=== PATIENT | female | born 1930 | race Caucasian/White ===

== ENCOUNTER 2016-11-21 17:27 | Observation (INO) ==
[~2016-11-21 17:27] MED LIST: ENOXAPARIN 40 MG/0.4 ML SYRINGE SUBCUT SCH
[2016-11-21] MEDS ORDERED: ONDANSETRON 4 MG/2 ML VIAL IV STA (19:26)
[2016-11-21] MEDS ORDERED: SODIUM CHLORIDE 0.9% 500 ML IV STA (19:26)
--- NOTE | 2016-11-21 19:59 | XRay Report ---
Portable chest Exam date: 11/21/2016 7:27 PM Indication: Shortness of breath, cough Comparison: July 27, 2015 Findings: Cardiomediastinal contours are stable with again plaquing along the arch. Lungs are clear bilaterally. No acute osseous abnormalities. Visualized upper abdomen demonstrates no acute pathology. Impression: No acute cardiopulmonary findings PROCEDURE INTERPRETED AT [facility] DEPARTMENT OF RADIOLOGY Final Report Signed by: Pérez Mora
--- NOTE | 2016-11-21 20:07 | CT Report ---
Exam: CT head without intravenous contrast Clinical History: 86 years Female fall with headache Technique: Axial computed tomography images of the head/brain without intravenous contrast Comparison: July 02, 2013 Findings: Brain: Stable microangiopathic small vessel ischemic changes. Mora-white matter distinction maintained. No mass effect. No intra or extra-axial hemorrhage. Ventricles: Unremarkable. Symmetric prominence of ventricular system, felt to represent changes associated with volume loss. Bones/joints: Calvarium is intact Soft tissues: Unremarkable Sinuses: No active paranasal sinus process Mastoid air cells: Unremarkable visualized. Impression: 1. No acute intracranial abnormality PROCEDURE INTERPRETED AT [facility] DEPARTMENT OF RADIOLOGY Final Report Signed by: Pérez Mora
--- NOTE | 2016-11-21 20:09 | XRay Report ---
Exam: XR pelvis AP 1 or 2 Views Exam date: 11/21/2016 7:27 PM Indication: Pelvic Pain, Comparison: August 10, 2015 Findings: Slight proliferative changes across the acetabulum with mild symmetric joint space narrowing. Healed fracture deformities of the right hemipelvis with bilateral sacroiliitis and osteitis pubis. Bowel gas pattern is normal. No radiographic soft tissue abnormalities. Impression: Healed fracture deformities the right hemipelvis with degenerative changes involving bilateral hips, sacroiliac joints and symphysis pubis PROCEDURE INTERPRETED AT [facility] DEPARTMENT OF RADIOLOGY Final Report Signed by: Pérez Mora
--- NOTE | 2016-11-21 20:10 | Emergency Department Note ---
IShagufta Gwan, am scribing for, and in the presence of, Yeyo Valdivia MD 18 :57. IShea Charles R, MD, personally performed the services described in this documentation, ascribed by Gerri Eagle in my presence, and it is both accurate and complete . Arrival - Arrival Chief Complaint: Fall Stated Complaint: blood sugar,fell this morning ED Nursing Triage Note: reports tired and feeling bad and just "wore out" for the past two weeks. family member reports that pt fell this morning and that she dont think she is taking her meds correctly. pt reports that she has some left shoulder pain. Mode of Arrival: Wheelchair Limitations: No Limitations Source: Patient, Old Records Reviewed, RN Notes Reviewed - History of Present Illness HPI Narrative: Patient is a 86 y/o female, with a hx of Vertigo and NIDDM, who present to the ED with a c/o fatigue, dizziness, confusion and unsteady gait with an onset 2 weeks ago. Patient is accompanied by family member who reports that pt fell this morning causing injury to her left shoulder. Family denies that pt has been compliant with prescribed medications. Patient confirmed that as she was sitting on her bed when she lost her balance and fell between her bed and her bed side refrigerator. EMS was alerted but pt refused to go to ED for further evaluation at that time. Family continued to note that when they arrived, patient appeared confused and he BS was elevated. This prompted their visit to the ED for further evaluation. Family confirmed that pt has had multiple falls within the past year and that [employer] Cowan changed the rotation of her Medformin 2 weeks ago. Patient is followed by Dr. Camarillo. During exam, pt did not appear to be in any distress. No other problems/complaints reported in ED. Onset (ago): week(s) Consistency: constant Severity: moderate Allergies/Adverse Reactions: Allergies Allergy/AdvReac Type Severity Reaction Status Date / Time No Known Allergies Allergy Verified 07/30/15 16:51 Home Medications: Home Medications Medication Instructions Recorded Confirmed Type Aspirin [Children's Aspirin] 81 mg PO DAILY 07/24/14 11/21/16 History Chlorthalidone 37.5 mg PO DAILY 07/24/14 11/21/16 History Losartan Potassium 25 mg PO DAILY 07/24/14 11/21/16 History Pioglitazone HCl [Actos] 30 mg PO DAILY 07/24/14 11/21/16 History glyBURIDE/METFORMIN 5-500 1.5 tablet PO AC BREAKFAST 07/24/14 11/21/16 History [Glucovance 5-500] glyBURIDE/METFORMIN 5-500 1.5 tablet PO AC LUNCH 07/24/14 11/21/16 History [Glucovance 5-500] glyBURIDE/METFORMIN 5-500 1.5 tablet PO BEDTIME 07/24/14 11/21/16 History [Glucovance 5-500] Ibuprofen 800 mg PO BID W/MEALS PRN 07/31/15 11/21/16 History Citalopram Hydrobromide 10 mg PO BEDTIME 11/21/16 11/21/16 History [Citalopram HBr] Dorzolamide HCl/Timolol Maleat 1 drop RIGHT EYE BID 11/21/16 11/21/16 History [Dorzolamide/Timolol Oph Soln] Review of System - Review of System 12 point system: reviewed and no additional remarkable complaints except as stated - Review of System Respiratory: Absent: cough, wheezing Cardiovascular: Absent: chest pain, palpitations Musculoskeletal: Present: as per HPI, other (left shoulder pain ). Absent: back pain, leg pain, neck pain Neurological: Present: as per HPI, weakness (genrealized ). Absent: headache, confusion Medical,Surgical,& Family Hx - Medical History Cardio: History of: Hypertension Neurology: History of: Peripheral Neuropathy, Vertigo Endocrine: History of: Diabetes Mellitus (NIDDM), Dyslipidemia Respiratory: No history of: Asthma, COPD, Obstructive Sleep Apnea, Lung Cancer Gastrointestinal: No history of: GI Problems Musculoskeletal: History of: Musculoskeletal Problems (pelvic fracture, fibula fx) No history of: Amputation - Surgical History Cardiac Surgeries: Patient Denies: Cardiac Catheterization, Cardiac Surgery Thoracic Surgeries: Patient denies;: Organ Transplant, Lobectomy Neurologic Surgeries: Patient denies: Neurologic Surgery HEENT Surgeries: Patient denies: Eye Surgery, Thyroid Surgery, Tonsilectomy & Adenoidectomy Abdominal Surgeries: Surgical HX of: Abdominal Surgery (HYSTERECTOMY) Reproductive Surgeries: Surgical HX of;: Hysterectomy Patient denies;: Genitourinary Surgery Orthopedic Surgeries: Patient denies;: Implanted Devices, Orthopedic Surgery, Spinal Surgery, Total Hip Replacement, Total Knee Replacement - Family History Family History: Reports;: Family Cancer, Family Diabetes - Social History Smoking Status: Never smoker Exam Vital Signs: Vital Signs Temperature 98.7 F 11/21/16 19:19 Pulse Rate 80 11/21/16 19:19 Respiratory Rate 18 11/21/16 19:19 Blood Pressure 152/87 11/21/16 19:19 O2 Sat by Pulse Oximetry 100 11/21/16 17:35 - General General appearance: alert, in no apparent distress, other (Patient pleasently confused. ) - Head Head exam: Present: atraumatic, normocephalic - Eye Eye exam: Present: normal appearance, PERRL, EOMI - ENT ENT exam: Present: normal oropharynx, mucous membranes moist, TM's normal bilaterally, normal external ear exam - Neck Neck exam: Present: full ROM, trachea midline. Absent: tenderness - Chest Chest inspection: Present: symmetric chest wall rise. Absent: tenderness - Respiratory Respiratory exam: Present: normal lung sounds bilaterally. Absent: respiratory distress - Cardiovascular Cardiovascular exam: Present: regular rate, normal rhythm, normal heart sounds. Absent: murmur, rubs - Abdominal Exam Abdominal exam: Present: soft, normal bowel sounds. Absent: distention, tenderness - Extremities Exam Extremities exam: Present: full ROM. Absent: tenderness - Back Exam Back exam: Present: full ROM. Absent: tenderness - Neurological Exam Neurological exam: Present: alert, oriented X3, CN II-XII intact. Absent: motor sensory deficit - Psychiatric Psychiatric exam: Present: normal affect, normal mood - Skin Skin exam: Present: warm, dry, intact, normal color Course - Consultations Consultation #1: Dr. Wright will admit for Dr. Camarillo Time: 21:40 Results - Labs CBC & BMP: 11/21/16 20:13 11/21/16 20:13 Lab Results: I have reviewed the patients labs Labs: Laboratory Tests 11/21/16 11/21/16 20:13 20:13 WBC 8.3 RBC 3.72 L Hgb 12.3 Hct 35.5 L Plt Count 277 INR 1.0 PT Patient/Control Mix 10.8 Laboratory Tests 11/21/16 11/21/16 20:13 20:13 Sodium 142 Potassium 3.6 Chloride 104 Carbon Dioxide 32 BUN 16 Creatinine 0.80 Glucose 160 H Troponin I 0.228 H Albumin/Globulin Ratio 1.0 L Urine pH 6.0 Ur Specific [place] 1.006 Urine Glucose (UA) 150 Urine Urobilinogen < 2.0 H Laboratory Tests 11/21/16 20:13 Blood Type O POSITIVE Antibody Screen Negative - Diagnostic Findings Procedure: Chest x-ray: report reviewed by me (No acute cardiopulmonary findings. ), CT: report reviewed by me (Head: No acute intracranial abnormality. Cervical Spine: No evidence of traumatic injury to the cervical spine. ), X-ray: report reviewed by me (Pelvis: Healed fracture deformities the right hemipelvis with degenerative changes involving bilateral hips, sacroiliac joints and symphysis pubis. ) Disposition Clinical Impression: Syncope, Confusion, Altered mental status, Elevated troponin, Mechanical fall, Generalized weakness, Fall Case discussed with: patient, patient's family Disposition: Still a Patient Condition: Stable Time of Disposition: 21:42
--- NOTE | 2016-11-21 20:18 | CT Report ---
Exam: CT cervical spine without IV contrast Clinical History: 86 years,Female,fall with neck pain Technique: Axial computed tomography images of the cervical spine without intravenous contrast. Comparison: No relevant prior studies available. Findings: Vertebra: Preservation of cervical alignment and vertebral body heights. Disc/spinal Canal/neural foramina: Disc space loss with prominent bridging anterior osteophytes and multilevel facet arthrosis. Severe right foraminal narrowing at C3-4. Soft tissues: Unremarkable Thyroid: Symmetric in size and attenuation Lung apices: Well aerated Impression: 1. No evidence of traumatic injury to the cervical spine PROCEDURE INTERPRETED AT [facility] DEPARTMENT OF RADIOLOGY Final Report Signed by: Pérez Mora
[2016-11-21 20:23] LABS: Basophils # 0.1 10*3/uL (0.0-0.2); Basophils % 0.7 % (0.0-0.8); Eosinophils # 0.1 10*3/uL (0.0-0.87); Eosinophils % 0.8 % (0.00-10.9); Hematocrit 35.5 VOL% (35.7-47.0); Hemoglobin 12.3 GM/DL (12.0-16.0); Immature Granulocytes % 0.2 %; Immature Granulocytes Absolute 0.02 #; Lymphocytes # 3.3 10*3/uL (1.4-4.0); Lymphocytes % 39.6 % (21.3-54.2); Mean Corpuscular HGB Conc 34.6 GM/DL (32-36); Mean Corpuscular Hemoglobin 33 PG (27-34); Mean Corpuscular Volume 95.4 FL (87-102); Mean Platelet Volume 11.2 FL (9.6-12.0); Monocytes # 0.7 10*3/uL (0.11-0.8); Monocytes % 8.9 % (1.7-12.7); Neutrophils # 4.2 10*3/uL (1.4-7.4); Neutrophils % 49.8 % (38.7-73.9); Platelet Count 277 T/CUMM (130-400); Red Blood Count 3.72 MC/CUMM (3.8-5.5); White Blood Count 8.3 T/CUMM (4-12)
[2016-11-21 20:32] LABS: PT Patient Result 10.8 SECS
[2016-11-21 20:51] LABS: Apearance,Urine CLEAR (Clear); Bilirubin,Urine Negative (Negative); Blood, Urine Negative (Negative); Glucose,Urine (UA) 150 mg/dL (Negative); Ketones,Urine Negative (Negative); Nitrite,Urine Negative (Negative); Protein,Urine Negative; Urine Color Straw (Yellow); Urine Specific Gravity 1.006 (1.001-1.035); Urine Urobilinogen < 2.0 EU/DL (0.2-1.0)
[2016-11-21 21:02] LABS: Alanine Aminotransferase 18 U/L (13-56); Albumin 3.8 G/DL (3.4-5.0); Alkaline Phosphatase 57 U/L (45-117); Aspartate Amino Transferase 15 U/L (0-37); Blood Urea Nitrogen 16 MG/DL (7-18); Calcium 9.1 MG/DL (8.5-10.1); Glucose 160 MG/DL (74-106); Osmolality,Calculated 286.1 MOS/KG (273-304); Potassium 3.6 MMOL/L (3.5-5.1); Sodium 142 MMOL/L (136-145); Total Protein 7.3 G/DL (6.4-8.3)
[2016-11-21 21:03] LABS: Troponin I Only 0.228 NG/ML (0.00-0.045)
--- NOTE | 2016-11-21 21:27 | EKG Report ---
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
[2016-11-21] MEDS ORDERED: IBUPROFEN 800 MG TABLET PO PRN (22:28)
[2016-11-21] MEDS ORDERED: ONDANSETRON 4 MG/2 ML VIAL IV PRN (22:28)
[2016-11-21] MEDS ORDERED: DEXTROSE 50% 25 GM/50 ML SYRINGE IV PRN (22:28)
[2016-11-21] MEDS ORDERED: LACTULOSE 20 GM/30 ML UDCUP PO PRN (22:28)
[2016-11-21] MEDS ORDERED: ACETAMINOPHEN 325 MG TABLET PO PRN (22:28)
[2016-11-21] MEDS ORDERED: GLUCAGON 1 MG VIAL IM PRN (22:28)
[2016-11-21] MEDS ORDERED: MORPHINE 2 MG/1 ML SYRINGE IV PRN (22:28)
[2016-11-22 00:41] LABS: Troponin I Only 0.164 NG/ML (0.00-0.045)
[2016-11-22] MEDS: SODIUM CHLORIDE 0.9% 1,000 ML IV SCH ×2 (03:27→13:58)
[2016-11-22 05:16] LABS: Basophils % 0.6 % (0.0-0.8); Eosinophils # 0.1 10*3/uL (0.0-0.87); Hematocrit 34.7 VOL% (35.7-47.0); Hemoglobin 11.7 GM/DL (12.0-16.0); Immature Granulocytes % 0.3 %; Immature Granulocytes Absolute 0.02 #; Lymphocytes % 41.6 % (21.3-54.2); Mean Corpuscular HGB Conc 33.7 GM/DL (32-36); Mean Corpuscular Hemoglobin 33 PG (27-34); Mean Corpuscular Volume 97.5 FL (87-102); Mean Platelet Volume 11.6 FL (9.6-12.0); Monocytes # 0.8 10*3/uL (0.11-0.8); Monocytes % 10.5 % (1.7-12.7); Neutrophils # 3.3 10*3/uL (1.4-7.4); Platelet Count 263 T/CUMM (130-400); Red Blood Count 3.56 MC/CUMM (3.8-5.5); Red Cell Distribution Width 14.2 % (9.3-17.3); White Blood Count 7.1 T/CUMM (4-12)
[2016-11-22 05:56] LABS: Albumin 3.5 G/DL (3.4-5.0); Bilirubin,Total 0.4 MG/DL (0.2-1.0); Calcium 9.2 MG/DL (8.5-10.1); Magnesium 1.6 MG/DL (1.8-2.4); Osmolality,Calculated 289.3 MOS/KG (273-304); Potassium 3.9 MMOL/L (3.5-5.1); Risk Ratio 4.39; Total Protein 6.5 G/DL (6.4-8.3); VLDL CHOLESTEROL 43.8 MG/DL
[2016-11-22] MEDS ORDERED: INSULIN REGULAR 100 UNIT/ML SUBCUT SCH (07:30)
[2016-11-22] MEDS ORDERED: PIOGLITAZONE 15 MG TABLET PO SCH (07:30)
--- NOTE | 2016-11-22 08:04 | Order Completion Report ---
See report scanned to EMR
[2016-11-22] MEDS: glyBURIDE/METFORMIN 5-500 MG TABLET PO SCH ×2 (08:13→12:00)
[2016-11-22] MEDS: INSULIN LISPRO 100 UNIT/ML SUBCUT SCH ×4 (08:13→20:25)
[2016-11-22] MEDS: DORZOLAMIDE/TIMOLOL OPH SOLN 10 ML BOTTLE RIGHT EYE SCH ×2 (08:14→22:13)
[2016-11-22] MEDS: CHLORTHALIDONE 25 MG TABLET PO SCH (08:14)
[2016-11-22] MEDS: DOCUSATE SODIUM 100 MG CAPSULE PO SCH ×2 (08:14→20:33)
[2016-11-22] MEDS: ASPIRIN EC 81 MG TABLET PO SCH (08:14)
[2016-11-22] MEDS: PANTOPRAZOLE 40 MG TABLET PO SCH (08:14)
[2016-11-22] MEDS: ENOXAPARIN 40 MG/0.4 ML SYRINGE SUBCUT SCH (08:17)
[2016-11-22] MEDS: MAGNESIUM CHLORIDE 64 MG TABLET PO SCH ×2 (08:56→20:33)
[2016-11-22] MEDS ORDERED: LOSARTAN 25 MG TABLET PO SCH (09:00)
[2016-11-22] MEDS ORDERED: ASPIRIN CHEW 81 MG TABLET PO SCH (09:00)
--- NOTE | 2016-11-22 09:59 | XRay Report ---
History: Shortness of breath Date: 11/22/2016 Study: Chest x-ray AP portable Comparison exam: 11/21/2016 There is stable borderline cardiomegaly. The mediastinal contours are unchanged. The pulmonary vasculature is not engorged. There is no gross pleural effusion. The lungs are generally clear without confluent infiltrate. There is mild thoracic spondylosis. Impression: No acute cardiopulmonary process. No significant interval change PROCEDURE INTERPRETED AT [facility] DEPARTMENT OF RADIOLOGY Final Report Signed by: Dr. Dorcas Garcia
--- NOTE | 2016-11-22 15:03 | Order Completion Report ---
See report scanned to EMR
--- NOTE | 2016-11-22 18:26 | Family Practice History&Phys ---
Assessment and Plan (1) Altered mental status Status: Acute Assessment and plan: Patient was confused and disoriented following the fall. Her mental status had returned to a stable state at the time of my evaluation. Current Visit: Yes (2) Frequent falls Status: Chronic Assessment and plan: This is probably multifactorial with a component of deconditioning, diabetic peripheral neuropathy, and multi factors. Hopefully we can get patient in swing bed, rehabilitation or some type of program to help prevent future falls. Current Visit: Yes (3) fall with trauma to left shoulder Status: Acute Assessment and plan: Patient has full range of motion in the shoulder with some diffuse tenderness on palpation no swelling or erythema Current Visit: Yes (4) diabetic peripheral neuropathy Status: Chronic Assessment and plan: Patient has diabetic peripheral neuropathy which is a contributing factor to her frequent falls Current Visit: No (5) macular degeneration Status: Chronic Assessment and plan: Has had some progressive decline over time. Sleeping followed by a specialist. Current Visit: No (6) type 2 diabetes mellitus Status: Chronic Assessment and plan: Poorly controlled at times due to poor compliance with medications and diet and activity Current Visit: No (7) hypertension Status: Chronic Assessment and plan: Stable on present combination of medications Current Visit: No (8) degenerative joint disease Status: Chronic Assessment and plan: Patient has diffuse degenerative joint disease. Refuses to take medications. Current Visit: No (9) hyperlipidemia Status: Chronic Assessment and plan: Stable at present Current Visit: No History of Present Illness Chief complaint: mental confusion following fall History of present illness: Ms. Nair is a 86 year old female Patient has 6-year-old white female well-known to me who was brought to emergency room by family members after she fell at home. Patient states that she slipped while getting out of bed. EMS was called but patient refused to allow the ambulance to bring to the emergency room. Family subsequently arrived and noted that patient was confused and somewhat disoriented. Apparently he had hurt her left shoulder but no obvious areas of injury noted. She continued to exhibit confusion and vertigo. Patient has had multiple recent falls. On last clinic visit I had tried to convince patient to go to physical therapy but she refused. She lives alone and refuses to accept any help. She doesn't use her walker on her balance has continued to decline as part of her aging process. She also has diabetic peripheral neuropathy which she definitely has a component of her falls. She was seen in the emergency room and x-rays and head CT revealed no acute changes. In view of the history of falls and mental confusion she was admitted for further evaluation and therapy. Home Medications Medication Instructions Recorded Confirmed Type Aspirin [Children's Aspirin] 81 mg PO DAILY 07/24/14 11/21/16 History Chlorthalidone 37.5 mg PO DAILY 07/24/14 11/21/16 History Losartan Potassium 25 mg PO DAILY 07/24/14 11/21/16 History Pioglitazone HCl [Actos] 30 mg PO DAILY 07/24/14 11/21/16 History glyBURIDE/METFORMIN 5-500 1.5 tablet PO AC BREAKFAST 07/24/14 11/21/16 History [Glucovance 5-500] glyBURIDE/METFORMIN 5-500 1.5 tablet PO AC LUNCH 07/24/14 11/21/16 History [Glucovance 5-500] glyBURIDE/METFORMIN 5-500 1.5 tablet PO BEDTIME 07/24/14 11/21/16 History [Glucovance 5-500] Ibuprofen 800 mg PO BID W/MEALS PRN 07/31/15 11/21/16 History Citalopram Hydrobromide 10 mg PO BEDTIME 11/21/16 11/21/16 History [Citalopram HBr] Dorzolamide HCl/Timolol Maleat 1 drop RIGHT EYE BID 11/21/16 11/21/16 History [Dorzolamide/Timolol Oph Soln] Allergies Allergy/AdvReac Type Severity Reaction Status Date / Time No Known Allergies Allergy Verified 07/30/15 16:51 Medical,Surgical,& Family Hx - Medical History Cardio: History of: Hypertension Neurology: History of: Peripheral Neuropathy, Vertigo Endocrine: History of: Diabetes Mellitus (NIDDM), Dyslipidemia Respiratory: No history of: Asthma, COPD, Obstructive Sleep Apnea, Lung Cancer Gastrointestinal: No history of: GI Problems Musculoskeletal: History of: Musculoskeletal Problems (pelvic fracture, fibula fx) No history of: Amputation - Surgical History Cardiac Surgeries: Patient Denies: Cardiac Catheterization, Cardiac Surgery Thoracic Surgeries: Patient denies;: Organ Transplant, Lobectomy Neurologic Surgeries: Patient denies: Neurologic Surgery HEENT Surgeries: Patient denies: Eye Surgery, Thyroid Surgery, Tonsilectomy & Adenoidectomy Abdominal Surgeries: Surgical HX of: Abdominal Surgery (HYSTERECTOMY) Reproductive Surgeries: Surgical HX of;: Hysterectomy Patient denies;: Genitourinary Surgery Orthopedic Surgeries: Patient denies;: Implanted Devices, Orthopedic Surgery, Spinal Surgery, Total Hip Replacement, Total Knee Replacement - Family History Family History: Reports;: Family Cancer, Family Diabetes - Social History Smoking Status: Never smoker Frequency of Alcohol Use: None Type of Drug Use: None Marital Status: Lives With:: Alone Functional capacity: uses cane/walker Exam - Constitutional Vitals: Period Temp Pulse Resp BP Sys/Weems Pulse Ox Last 24 Hr 97.8 F-98.7 F 61-86 18-20 117-189/52-87 92-100 General appearance: mild distress - Head Head exam: Present: normal inspection - Eye Pupils: Present: YANCI - ENT ENT exam: Present: normal exam - Neck Neck exam: Present: normal inspection - Respiratory Respiratory exam: Present: clear to auscultation bilaterally - Cardiovascular Cardiovascular exam: Present: irregular rhythm - GI/Abdominal GI/Abdominal exam: Present: normal bowel sounds, soft - Extremities Exam Extremities exam: Present: full ROM, other (some diffuse tenderness on palpation over left shoulder) - Back Exam Back exam: Present: muscle spasm, other (patient has some tenderness on palpation over the paraspinal muscles in the lower lumbar region) - Neurological Exam Neurological exam: Present: alert, oriented X3 - Psychiatric Psychiatric exam: Present: anxious, flat affect - Skin Skin exam: Present: normal color Results - Labs CBC & BMP: 11/22/16 03:50 11/22/16 03:50
[2016-11-22] MEDS ORDERED: glyBURIDE/METFORMIN 5-500 MG TABLET PO SCH (21:00)
[2016-11-22] MEDS ORDERED: CITALOPRAM 20 MG TABLET PO SCH (21:00)
[2016-11-23 05:54] LABS: Basophils # 0.1 10*3/uL (0.0-0.2); Basophils % 0.9 % (0.0-0.8); Eosinophils # 0.1 10*3/uL (0.0-0.87); Eosinophils % 1.5 % (0.00-10.9); Hematocrit 37.5 VOL% (35.7-47.0); Hemoglobin 12.6 GM/DL (12.0-16.0); Immature Granulocytes % 0.1 %; Immature Granulocytes Absolute 0.01 #; Lymphocytes # 3.1 10*3/uL (1.4-4.0); Lymphocytes % 46.7 % (21.3-54.2); Mean Corpuscular HGB Conc 33.6 GM/DL (32-36); Mean Corpuscular Hemoglobin 33 PG (27-34); Mean Corpuscular Volume 97.2 FL (87-102); Mean Platelet Volume 11.5 FL (9.6-12.0); Monocytes # 0.5 10*3/uL (0.11-0.8); Monocytes % 8.1 % (1.7-12.7); Neutrophils # 2.9 10*3/uL (1.4-7.4); Neutrophils % 42.7 % (38.7-73.9); Platelet Count 277 T/CUMM (130-400); Red Blood Count 3.86 MC/CUMM (3.8-5.5); Red Cell Distribution Width 14.3 % (9.3-17.3); White Blood Count 6.7 T/CUMM (4-12)
[2016-11-23 06:23] LABS: Calcium 9.4 MG/DL (8.5-10.1); Magnesium 1.5 MG/DL (1.8-2.4); Potassium 4.3 MMOL/L (3.5-5.1)
--- NOTE | 2016-11-23 08:18 | Family Practice Progress Note ---
Family Practice - PN: Subj Interval history: Patient states that she feels better this a.m. Still having some difficulty ambulating. Trying to get her approved for swing bed or rehab. Patient has fallen multiple times at home and no doubt this is multifactorial in nature. Would definitely benefit from physical therapy. She is otherwise stable. Reviewed lab and x-ray studies. Exam (Progress Note) - Constitutional Vitals: Period Temp Pulse Resp BP Sys/Weems Pulse Ox Last 24 Hr 97.7 F-98.8 F 60-75 18-20 117-191/52-88 92-98 Results - Labs CBC & BMP: 11/23/16 05:23 11/23/16 05:23 Assessment and Plan (1) Altered mental status Status: Acute Assessment and plan: Patient was confused and disoriented following the fall. Her mental status had returned to a stable state at the time of my evaluation. Current Visit: Yes (2) Frequent falls Status: Chronic Assessment and plan: This is probably multifactorial with a component of deconditioning, diabetic peripheral neuropathy, and multi factors. Hopefully we can get patient in swing bed, rehabilitation or some type of program to help prevent future falls. Current Visit: Yes (3) fall with trauma to left shoulder Status: Acute Assessment and plan: Patient has full range of motion in the shoulder with some diffuse tenderness on palpation no swelling or erythema Current Visit: Yes (4) diabetic peripheral neuropathy Status: Chronic Assessment and plan: Patient has diabetic peripheral neuropathy which is a contributing factor to her frequent falls Current Visit: No (5) macular degeneration Status: Chronic Assessment and plan: Has had some progressive decline over time. Sleeping followed by a specialist. Current Visit: No (6) type 2 diabetes mellitus Status: Chronic Assessment and plan: Poorly controlled at times due to poor compliance with medications and diet and activity Current Visit: No (7) hypertension Status: Chronic Assessment and plan: Stable on present combination of medications Current Visit: No (8) degenerative joint disease Status: Chronic Assessment and plan: Patient has diffuse degenerative joint disease. Refuses to take medications. Current Visit: No (9) hyperlipidemia Status: Chronic Assessment and plan: Stable at present Current Visit: No
[2016-11-23] MEDS: glyBURIDE/METFORMIN 5-500 MG TABLET PO SCH ×2 (08:25→12:24)
[2016-11-23] MEDS: INSULIN LISPRO 100 UNIT/ML SUBCUT SCH ×2 (08:27→12:25)
[2016-11-23] MEDS ORDERED: PIOGLITAZONE 15 MG TABLET PO SCH (09:00)
[2016-11-23] MEDS ORDERED: LOSARTAN 50 MG TABLET PO SCH (09:00)
[2016-11-23] MEDS: CHLORTHALIDONE 25 MG TABLET PO SCH (09:36)
[2016-11-23] MEDS: PANTOPRAZOLE 40 MG TABLET PO SCH (09:37)
[2016-11-23] MEDS: ASPIRIN EC 81 MG TABLET PO SCH (09:38)
[2016-11-23] MEDS: MAGNESIUM CHLORIDE 64 MG TABLET PO SCH (09:38)
[2016-11-23] MEDS: DOCUSATE SODIUM 100 MG CAPSULE PO SCH (09:38)
[2016-11-23] MEDS: DORZOLAMIDE/TIMOLOL OPH SOLN 10 ML BOTTLE RIGHT EYE SCH (09:44)
[2016-11-23] MEDS: ENOXAPARIN 40 MG/0.4 ML SYRINGE SUBCUT SCH (09:54)
--- NOTE | 2016-11-23 10:51 | Discharge Summary ---
Hospital Course - Hospital Course Hospital Course: Ms. Nair is a 86 year old female Patient has 6-year-old white female well-known to me who was brought to emergency room by family members after she fell at home. Patient states that she slipped while getting out of bed. EMS was called but patient refused to allow the ambulance to bring to the emergency room. Family subsequently arrived and noted that patient was confused and somewhat disoriented. Apparently he had hurt her left shoulder but no obvious areas of injury noted. She continued to exhibit confusion and vertigo. Patient has had multiple recent falls. On last clinic visit I had tried to convince patient to go to physical therapy but she refused. She lives alone and refuses to accept any help. She doesn't use her walker on her balance has continued to decline as part of her aging process. She also has diabetic peripheral neuropathy which she definitely has a component of her falls. She was seen in the emergency room and x-rays and head CT revealed no acute changes. In view of the history of falls and mental confusion she was admitted for further evaluation and therapy. HOSPITAL COURSE -patient was admitted to hospital lab and x-ray studies obtained. Patient remained very weak with difficulty ambulating. She has had multiple recent falls. Her lab and x-ray studies were unremarkable. After discussing in detail with patient and family she would benefit from rehabilitation. Arrangements were made for patient to transfer to the [facility] rehab. We will send appropriate lab and records and plan to follow on discharge. Patient stable at time of discharge Diagnosis - Discharge Diagnosis (1) Altered mental status Status: Acute (2) Frequent falls Status: Chronic (3) fall with trauma to left shoulder Status: Acute (4) diabetic peripheral neuropathy Status: Chronic (5) macular degeneration Status: Chronic (6) type 2 diabetes mellitus Status: Chronic (7) hypertension Status: Chronic (8) degenerative joint disease Status: Chronic (9) hyperlipidemia Status: Chronic Specialty Discharge - Follow Up or Referrals Follow up with: Cesario Camarillo DO [Physician] - (Have patient keep her routine follow-up appointment on discharge) Discharge Plan - Discharge Data Disposition: Disch/Xfer- Rehab Fac Condition at Discharge: Stable Discharge Diet: diabetic diet Activity: as per physical therapy Hygiene: no restrictions Weight Bearing at Discharge: weight bear as tolerated Contact your physician if you experience:: fever over 101, Nausea/Vomiting, Shortness of breath - Discharge Medications Continue Pioglitazone HCl [Actos] 30 mg PO DAILY Aspirin [Children's Aspirin] 81 mg PO DAILY Chlorthalidone 37.5 mg PO DAILY glyBURIDE/METFORMIN 5-500 [Glucovance 5-500] 1.5 tablet PO AC BREAKFAST glyBURIDE/METFORMIN 5-500 [Glucovance 5-500] 1.5 tablet PO AC LUNCH glyBURIDE/METFORMIN 5-500 [Glucovance 5-500] 1.5 tablet PO BEDTIME Losartan Potassium 25 mg PO DAILY Dorzolamide HCl/Timolol Maleat [Dorzolamide/Timolol Oph Soln] 1 drop RIGHT EYE BID Citalopram Hydrobromide [Citalopram HBr] 10 mg PO BEDTIME Ibuprofen 800 mg PO BID W/MEALS PRN PRN Reason: Pain - Follow Up or Referral Follow Up: Cesario Camarillo DO [Physician] - (Have patient keep her routine follow-up appointment on discharge) - Forms/Instructions Instructions: Syncope (DC) Exam - Constitutional Vitals: Period Temp Pulse Resp BP Sys/Weems Pulse Ox Last 24 Hr 97.7 F-98.8 F 60-75 18-20 117-191/52-88 92-98 General appearance: no acute distress - Head Head exam: Present: normal inspection - Eye Pupils: Present: YANCI - ENT ENT exam: Present: normal exam - Neck Neck exam: Present: normal inspection - Respiratory Respiratory exam: Present: clear to auscultation bilaterally - Cardiovascular Cardiovascular exam: Present: irregular rhythm - GI/Abdominal GI/Abdominal exam: Present: normal bowel sounds, soft - Extremities Exam Extremities exam: Present: full ROM, edema - Back Exam Back exam: Present: normal inspection - Neurological Exam Neurological exam: Present: alert, other (Patient has decreased sensory and vibratory legs ankles and feet consistent with neuropathy) - Psychiatric Psychiatric exam: Present: flat affect - Skin Skin exam: Present: normal color Discharge Results Labs on day of discharge: Labs from last 24 hours 11/23/16 11/23/16 11/23/16 07:38 05:23 05:23 WBC 6.7 RBC 3.86 Hgb 12.6 Hct 37.5 MCV 97.2 MCH 33 MCHC 33.6 RDW 14.3 Plt Count 277 MPV 11.5 Neut % (Auto) 42.7 Lymph % (Auto) 46.7 Bartholomew % (Auto) 8.1 Eos % (Auto) 1.5 Baso % (Auto) 0.9 H Neut # (Auto) 2.9 Lymph # (Auto) 3.1 Bartholomew # (Auto) 0.5 Eos # (Auto) 0.1 Baso # (Auto) 0.1 Immature Gran % 0.1 Nucleated RBC % 0.0 Immature Gran # 0.01 Nucleated RBCs # 0.00 Immature Plt Fraction 0.0 Sodium 143 Potassium 4.3 Chloride 106 Carbon Dioxide 30 Anion Gap 11.3 BUN 13 Creatinine 0.90 GFR Calculation 62 BUN/Creatinine Ratio 14.00 Glucose 141 H POC Glucose 172 H Calculated Osmolality 286.0 Calcium 9.4 Magnesium 1.5 L 11/22/16 11/22/16 11/22/16 18:50 14:49 11:00 WBC RBC Hgb Hct MCV MCH MCHC RDW Plt Count MPV Neut % (Auto) Lymph % (Auto) Bartholomew % (Auto) Eos % (Auto) Baso % (Auto) Neut # (Auto) Lymph # (Auto) Bartholomew # (Auto) Eos # (Auto) Baso # (Auto) Immature Gran % Nucleated RBC % Immature Gran # Nucleated RBCs # Immature Plt Fraction Sodium Potassium Chloride Carbon Dioxide Anion Gap BUN Creatinine GFR Calculation BUN/Creatinine Ratio Glucose POC Glucose 122 H 85 218 H Calculated Osmolality Calcium Magnesium DS: Provider Date of admission: 11/21/16 21:59 Primary care physician: . No PCP Attending physician on admission: Cesario Camarillo DO Consults: 11/21/16 22:28 Consult to Case Mgmt/Social Srvs [CONS] Routine Reason for Case Mgmt/Social Srvs: Discharge Planning 11/22/16 07:26 Consult to Physical Therapy [CONS] Routine Reason for Physical Therapy: Ambulation Start Therapy: Today Discharging clinician: Cesario Camarillo DO
[2016-11-23 11:17] VITALS: BP 134/64
== END 2016-11-23 13:50 ==
LOC: N.ED 17:27 → N.EDINP 21:59 → INTOOBSV 21:59 → N.TELEN 22:13
PROVIDERS: ADMIT Family Medicine; ATTEND Family Medicine

== ENCOUNTER 2018-06-23 08:37 | Inpatient (IN) ==
[2018-06-23 09:25] LABS: Basophils # 0.1 10*3/uL (0.0-0.2); Basophils % 0.5 % (0.0-0.8); Hematocrit 38.6 VOL% (35.7-47.0); Hemoglobin 12.4 GM/DL (12.0-16.0); Immature Granulocytes % 0.7 %; Immature Granulocytes Absolute 0.09 #; Lymphocytes # 2.9 10*3/uL (1.4-4.0); Mean Corpuscular HGB Conc 32.1 GM/DL (32-36); Mean Corpuscular Volume 97.2 FL (87-102); Mean Platelet Volume 11.5 FL (9.6-12.0); Monocytes % 5.9 % (1.7-12.7); Neutrophils % 71.9 % (38.7-73.9); Platelet Count 307 T/CUMM (130-400); Red Blood Count 3.97 MC/CUMM (3.8-5.5); Red Cell Distribution Width 14.1 % (9.3-17.3); White Blood Count 13.8 T/CUMM (4-12)
[2018-06-23 09:32] LABS: Apearance,Urine CLEAR (Clear); Bilirubin,Urine Negative (Negative); Blood, Urine Small mg/dL (Negative); Glucose,Urine (UA) >=500 mg/dL (Negative); Ketones,Urine 5 mg/dL (Negative); Mucus,Urine Occasional /LPF (Occasional); Nitrite,Urine Negative (Negative); Protein,Urine 100 MG/DL; RBC,Urine 5 /HPF (0-4); Squamous Epithelial Cell,Urine Occasional /HPF (0-10); Urine Color Yellow (Yellow); Urine Specific Gravity 1.029 (1.001-1.035); Urine Urobilinogen < 2.0 EU/DL (0.2-1.0); WBC,Urine 15 /HPF (0-6)
[2018-06-23 09:34] LABS: Alanine Aminotransferase 12 U/L (13-56); Albumin 3.8 G/DL (3.4-5.0); Alkaline Phosphatase 86 U/L (45-117); Aspartate Amino Transferase 78 U/L (0-37); Blood Urea Nitrogen 20 MG/DL (7-18); Calcium 9.1 MG/DL (8.5-10.1); Glucose 295 MG/DL (74-106); Total Protein 7.9 G/DL (6.4-8.3)
[2018-06-23] MEDS ORDERED: SODIUM CHLORIDE 0.9% 1,000 ML IV STA (09:39)
[2018-06-23] MEDS ORDERED: LEVOFLOXACIN INJ 750 MG in PREMIX 1 EACH IV STA (11:10)
[2018-06-23] MEDS ORDERED: LORazepam 2 MG/1 ML VIAL IV STA (11:29)
[2018-06-23] MEDS ORDERED: ONDANSETRON 4 MG/2 ML VIAL IV PRN ×2 (13:11→13:58)
[2018-06-23] MEDS ORDERED: DEXTROSE 50% 25 GM/50 ML SYRINGE IV PRN ×2 (13:11→13:58)
[2018-06-23] MEDS ORDERED: ACETAMINOPHEN 325 MG TABLET PO PRN ×2 (13:11→13:58)
[2018-06-23] MEDS ORDERED: GLUCAGON 1 MG VIAL IM PRN ×2 (13:11→13:58)
[2018-06-23] MEDS ORDERED: MAGNESIUM SULF INJ 3 GM in SODIUM CHLORIDE 0.9% 100 ML IV ONE (13:58)
[2018-06-23] MEDS ORDERED: SODIUM CHLORIDE 0.9% 1,000 ML IV SCH (13:58)
[2018-06-23] MEDS: SODIUM CHLORIDE 0.9% 1,000 ML IV SCH (15:32)
[2018-06-23] MEDS: ENOXAPARIN 30 MG/0.3 ML SYRINGE SUBCUT SCH (15:32)
[2018-06-23] MEDS: INSULIN REGULAR 100 UNIT/ML SUBCUT SCH ×2 (15:32→18:20)
[2018-06-23] MEDS: INSULIN LISPRO 100 UNIT/ML SUBCUT SCH (18:15)
[2018-06-23] MEDS: CARBIDOPA PO SCH ×2 (18:25→20:50)
[2018-06-23] MEDS: LEVODOPA PO SCH ×2 (18:25→20:50)
[2018-06-23] MEDS ORDERED: LORazepam 2 MG/1 ML VIAL IV PRN (18:42)
[2018-06-23] MEDS: DOCUSATE SODIUM 100 MG CAPSULE PO SCH ×2 (20:51→20:59)
[2018-06-24] MEDS: SODIUM CHLORIDE 0.9% 1,000 ML IV SCH ×4 (02:54→20:24)
[2018-06-24] MEDS: INSULIN REGULAR 100 UNIT/ML SUBCUT SCH ×4 (02:57→18:47)
[2018-06-24 04:55] LABS: Basophils # 0.1 10*3/uL (0.0-0.2); Basophils % 0.6 % (0.0-0.8); Eosinophils # 0.1 10*3/uL (0.0-0.87); Eosinophils % 1.6 % (0.00-10.9); Hematocrit 33.8 VOL% (35.7-47.0); Hemoglobin 10.8 GM/DL (12.0-16.0); Immature Granulocytes % 0.4 %; Immature Granulocytes Absolute 0.04 #; Lymphocytes # 3.5 10*3/uL (1.4-4.0); Lymphocytes % 38.5 % (21.3-54.2); Mean Platelet Volume 11.6 FL (9.6-12.0); Monocytes % 8.4 % (1.7-12.7); Neutrophils % 50.5 % (38.7-73.9); Platelet Count 262 T/CUMM (130-400); Red Blood Count 3.45 MC/CUMM (3.8-5.5); Red Cell Distribution Width 14.3 % (9.3-17.3)
[2018-06-24 05:27] LABS: Alanine Aminotransferase < 6 U/L (13-56); Albumin 3.2 G/DL (3.4-5.0); Alkaline Phosphatase 64 U/L (45-117); Aspartate Amino Transferase 68 U/L (0-37); Blood Urea Nitrogen 23 MG/DL (7-18); Glucose 156 MG/DL (74-106); Osmolality,Calculated 287.3 MOS/KG (273-304); Total Protein 6.4 G/DL (6.4-8.3)
[2018-06-24] MEDS: INSULIN LISPRO 100 UNIT/ML SUBCUT SCH ×2 (07:24→18:14)
[2018-06-24] MEDS ORDERED: PANTOPRAZOLE 40 MG TABLET PO SCH (09:00)
[2018-06-24] MEDS: DOCUSATE SODIUM 100 MG CAPSULE PO SCH ×3 (09:53→20:21)
[2018-06-24] MEDS: CARBIDOPA PO SCH ×3 (09:53→20:21)
[2018-06-24] MEDS: LEVODOPA PO SCH ×3 (09:53→20:21)
[2018-06-24] MEDS: PANTOPRAZOLE 40 MG TABLET PO SCH (09:57)
[2018-06-24] MEDS: LEVOFLOXACIN INJ 250 MG in PREMIX 1 EACH IV SCH (11:41)
[2018-06-24] MEDS: ENOXAPARIN 30 MG/0.3 ML SYRINGE SUBCUT SCH (13:04)
[2018-06-25] MEDS: INSULIN LISPRO 100 UNIT/ML SUBCUT SCH ×2 (08:47→16:35)
[2018-06-25] MEDS: hydroCHLOROthiazide 12.5 MG CAPSULE PO SCH (10:21)
[2018-06-25] MEDS: DOCUSATE SODIUM 100 MG CAPSULE PO SCH ×2 (10:21→20:21)
[2018-06-25] MEDS: PANTOPRAZOLE 40 MG TABLET PO SCH (10:22)
[2018-06-25] MEDS: LEVOFLOXACIN INJ 250 MG in PREMIX 1 EACH IV SCH (10:22)
[2018-06-25] MEDS: SODIUM CHLOR 0.9% KCL 20 MEQ 20 MEQ/1,000 ML BAG IV SCH ×2 (10:22→20:10)
[2018-06-25] MEDS: LOSARTAN 50 MG TABLET PO SCH (10:22)
[2018-06-25] MEDS: SODIUM CHLORIDE 0.9% 1,000 ML IV SCH (10:24)
[2018-06-25] MEDS: CARBIDOPA PO SCH ×3 (10:31→20:19)
[2018-06-25] MEDS: LEVODOPA PO SCH ×3 (10:31→20:19)
[2018-06-25] MEDS: metFORMIN 500 MG TABLET PO SCH (16:36)
[2018-06-25] MEDS ORDERED: glipiZIDE 5 MG TABLET PO SCH (17:00)
[2018-06-25] MEDS ORDERED: ENOXAPARIN 40 MG/0.4 ML SYRINGE SUBCUT SCH (21:00)
[2018-06-25] MEDS ORDERED: DONEPEZIL 10 MG TABLET PO SCH (21:00)
[2018-06-26] MEDS: SODIUM CHLOR 0.9% KCL 20 MEQ 20 MEQ/1,000 ML BAG IV SCH (04:03)
[2018-06-26 05:24] LABS: Basophils # 0.1 10*3/uL (0.0-0.2); Basophils % 0.5 % (0.0-0.8); Eosinophils # 0.1 10*3/uL (0.0-0.87); Eosinophils % 1.2 % (0.00-10.9); Hematocrit 34.3 VOL% (35.7-47.0); Hemoglobin 10.8 GM/DL (12.0-16.0); Immature Granulocytes % 0.5 %; Immature Granulocytes Absolute 0.06 #; Lymphocytes # 3.6 10*3/uL (1.4-4.0); Mean Corpuscular HGB Conc 31.5 GM/DL (32-36); Mean Corpuscular Volume 100.6 FL (87-102); Mean Platelet Volume 11.8 FL (9.6-12.0); Neutrophils % 59.8 % (38.7-73.9); Platelet Count 274 T/CUMM (130-400); Red Blood Count 3.41 MC/CUMM (3.8-5.5); Red Cell Distribution Width 14.3 % (9.3-17.3); White Blood Count 11.9 T/CUMM (4-12)
[2018-06-26 05:46] LABS: Calcium 8.6 MG/DL (8.5-10.1); Osmolality,Calculated 284.1 MOS/KG (273-304)
[2018-06-26] MEDS ORDERED: MAGNESIUM SULF RIDER 2 GM in PREMIX 1 EACH IV ONE (09:00)
[2018-06-26] MEDS ORDERED: MAGNESIUM CHLORIDE 64 MG TABLET PO SCH (09:00)
[2018-06-26] MEDS: DOCUSATE SODIUM 100 MG CAPSULE PO SCH (09:12)
[2018-06-26] MEDS: CARBIDOPA PO SCH (09:13)
[2018-06-26] MEDS: hydroCHLOROthiazide 12.5 MG CAPSULE PO SCH (09:13)
[2018-06-26] MEDS: INSULIN LISPRO 100 UNIT/ML SUBCUT SCH (09:13)
[2018-06-26] MEDS: LEVODOPA PO SCH (09:13)
[2018-06-26] MEDS: PANTOPRAZOLE 40 MG TABLET PO SCH (09:13)
[2018-06-26] MEDS: metFORMIN 500 MG TABLET PO SCH (09:13)
[2018-06-26] MEDS: LOSARTAN 50 MG TABLET PO SCH (09:13)
[2018-06-26 11:42] VITALS: BP 116/59
[2018-06-26] MEDS: LEVOFLOXACIN INJ 250 MG in PREMIX 1 EACH IV SCH (12:13)
== END 2018-06-26 14:45 | disposition swing bed (61) | DRG 690 ==
LOC: EDBD → EDUNIT# → N.ED 08:37 → N.EDINP 11:31 → N.2E 13:49
PROVIDERS: ADMIT Family Medicine; ATTEND Family Medicine

== ENCOUNTER 2019-02-25 03:05 | Inpatient (IN) ==
[2019-02-25] MEDS ORDERED: FUROSEMIDE 100 MG/10 ML VIAL IV STA (03:08)
[2019-02-25] MEDS ORDERED: NITROGLYCERIN DRIP 50 MG/250 ML BOTTLE IV SCH (03:30)
[2019-02-25 03:37] LABS: Allen Test Positive; Pt O2 Delivery Device BIPAP
[2019-02-25 03:38] LABS: ABG Base Excess 1.8 MMOL/L (-2.5-2.5); ABG Oxygen Saturation 96.6 % (95-100); ABG PCO2 46.5 MM HG (35-48); ABG PO2 87.8 MM HG (80-95); ABG TCO2 24.4 MMOL/L (23-27)
[2019-02-25 03:51] LABS: Basophils # 0.1 10*3/uL (0.0-0.2); Basophils % 0.7 % (0.0-0.8); Eosinophils # 0.1 10*3/uL (0.0-0.87); Eosinophils % 0.5 % (0.00-10.9); Hematocrit 36.8 VOL% (35.7-47.0); Hemoglobin 11.8 GM/DL (12.0-16.0); Immature Granulocytes % 0.4 %; Immature Granulocytes Absolute 0.06 #; Mean Corpuscular HGB Conc 32.1 GM/DL (32-36); Mean Corpuscular Volume 93.9 FL (87-102); Mean Platelet Volume 10.9 FL (9.6-12.0); Monocytes % 4.8 % (1.7-12.7); Neutrophils % 71.6 % (38.7-73.9); Platelet Count 308 T/CUMM (130-400); Red Blood Count 3.92 MC/CUMM (3.8-5.5); Red Cell Distribution Width 14.5 % (9.3-17.3); White Blood Count 13.8 T/CUMM (4-12)
[2019-02-25 04:19] LABS: Alanine Aminotransferase < 6 U/L (13-56); Albumin 3.5 G/DL (3.4-5.0); Alkaline Phosphatase 81 U/L (45-117); Aspartate Amino Transferase 14 U/L (0-37); Blood Urea Nitrogen 17 MG/DL (7-18); Calcium 8.7 MG/DL (8.5-10.1); Estimated Glom Filtration Rate 49 ML/MIN; Glucose 241 MG/DL (74-106); Osmolality,Calculated 288.4 MOS/KG (273-304); Total Protein 7.4 G/DL (6.4-8.3)
[2019-02-25 04:24] LABS: Apearance,Urine Slightly Hazy (Clear); Bacteria,Urine Many /HPF (Few); Bilirubin,Urine Negative (Negative); Blood, Urine Negative (Negative); Glucose,Urine (UA) >=500 mg/dL (Negative); Ketones,Urine Negative (Negative); Mucus,Urine Moderate /LPF (Occasional); Nitrite,Urine Negative (Negative); Protein,Urine 30 MG/DL; Urine Color Yellow (Yellow); Urine Specific Gravity 1.012 (1.001-1.035); Urine Urobilinogen < 2.0 EU/DL (0.2-1.0); WBC,Urine 2 /HPF (0-6)
[2019-02-25] MEDS ORDERED: GLUCAGON 1 MG VIAL IM PRN (05:32)
[2019-02-25] MEDS ORDERED: DEXTROSE 10% 250 ML BAG IV PRN (05:32)
[2019-02-25] MEDS ORDERED: ACETAMINOPHEN 325 MG TABLET PO PRN (05:32)
[2019-02-25] MEDS ORDERED: MAGNESIUM SULF RIDER 4 GM in PREMIX 1 EACH IV PRN (08:20)
[2019-02-25] MEDS: PANTOPRAZOLE 40 MG TABLET PO SCH (09:26)
[2019-02-25] MEDS: ENOXAPARIN 40 MG/0.4 ML SYRINGE SUBCUT SCH (09:26)
[2019-02-25] MEDS: MULTIVITAMIN (CENTRUM) TABLET PO SCH (09:26)
[2019-02-25] MEDS: INSULIN LISPRO 100 UNIT/ML SUBCUT SCH ×3 (13:11→21:24)
[2019-02-25] MEDS: CARBIDOPA LEVODOPA PO SCH ×3 (13:14→21:25)
[2019-02-25] MEDS: FUROSEMIDE 40 MG/4 ML VIAL IV SCH (16:58)
[2019-02-25] MEDS: glipiZIDE 5 MG TABLET PO SCH (21:24)
[2019-02-25] MEDS: DONEPEZIL 10 MG TABLET PO SCH (21:24)
[2019-02-26 04:54] LABS: Basophils # 0.1 10*3/uL (0.0-0.2); Basophils % 0.7 % (0.0-0.8); Eosinophils # 0.1 10*3/uL (0.0-0.87); Eosinophils % 1.4 % (0.00-10.9); Hematocrit 36.6 VOL% (35.7-47.0); Hemoglobin 11.8 GM/DL (12.0-16.0); Immature Granulocytes % 0.5 %; Immature Granulocytes Absolute 0.04 #; Lymphocytes % 35.9 % (21.3-54.2); Mean Corpuscular HGB Conc 32.2 GM/DL (32-36); Mean Corpuscular Volume 93.8 FL (87-102); Mean Platelet Volume 11.3 FL (9.6-12.0); Neutrophils % 52.5 % (38.7-73.9); Platelet Count 310 T/CUMM (130-400); Red Cell Distribution Width 14.5 % (9.3-17.3); White Blood Count 8.4 T/CUMM (4-12)
[2019-02-26 05:12] LABS: Albumin 3.5 G/DL (3.4-5.0); Bilirubin,Total 0.5 MG/DL (0.2-1.0); Calcium 8.7 MG/DL (8.5-10.1); Osmolality,Calculated 286.4 MOS/KG (273-304); Total Protein 7.4 G/DL (6.4-8.3)
[2019-02-26] MEDS ORDERED: MAGNESIUM SULF RIDER 4 GM in PREMIX 1 EACH IV PRN (07:15)
[2019-02-26] MEDS ORDERED: MAGNESIUM SULF RIDER 2 GM in PREMIX 1 EACH IV PRN ×2 (07:15→14:53)
[2019-02-26] MEDS: INSULIN LISPRO 100 UNIT/ML SUBCUT SCH ×4 (09:01→21:05)
[2019-02-26] MEDS: FUROSEMIDE 40 MG/4 ML VIAL IV SCH ×2 (09:40→15:53)
[2019-02-26] MEDS: CARBIDOPA LEVODOPA PO SCH ×3 (09:41→21:05)
[2019-02-26] MEDS: PANTOPRAZOLE 40 MG TABLET PO SCH (09:41)
[2019-02-26] MEDS: ENOXAPARIN 40 MG/0.4 ML SYRINGE SUBCUT SCH (09:41)
[2019-02-26] MEDS: MULTIVITAMIN (CENTRUM) TABLET PO SCH (09:41)
[2019-02-26] MEDS ORDERED: POTASSIUM CHLORIDE 20 MEQ TABLET PO ONE (10:07)
[2019-02-26] MEDS ORDERED: DIAZEPAM 5 MG TABLET PO ONE (14:53)
[2019-02-26] MEDS ORDERED: POTASSIUM CHLORIDE RIDER 10 MEQ in PREMIX 1 EACH IV PRN (14:53)
[2019-02-26] MEDS ORDERED: diphenhydrAMINE CAP 25 MG CAPSULE PO ONE (14:53)
[2019-02-26] MEDS ORDERED: LIDOCAINE 1% 20 ML VIAL ONE (15:07)
[2019-02-26] MEDS ORDERED: MIDAZOLAM 2 MG/2 ML VIAL ONE (15:14)
[2019-02-26] MEDS ORDERED: LIDOCAINE 1%/EPI INJ 20 ML VIAL ONE (15:14)
[2019-02-26] MEDS ORDERED: fentaNYL 100 MCG/2 ML VIAL ONE (15:14)
[2019-02-26] MEDS ORDERED: HYDROmorphone 2 MG/1 ML VIAL ONE (15:15)
[2019-02-26] MEDS ORDERED: NALOXONE 0.4 MG/ML VIAL ONE (15:31)
[2019-02-26] MEDS ORDERED: ENOXAPARIN 60 MG/0.6 ML SYRINGE ONE (15:43)
[2019-02-26] MEDS ORDERED: TIROFIBAN 5,000 MCG/100 ML PREMIX IV ONE (16:01)
[2019-02-26] MEDS ORDERED: NITROPRUSSIDE 50 MG/2 ML VIAL ONE (16:22)
[2019-02-26] MEDS ORDERED: ZALEPLON 5 MG CAPSULE PO PRN (16:57)
[2019-02-26] MEDS ORDERED: ONDANSETRON 4 MG/2 ML VIAL IV PRN (16:57)
[2019-02-26] MEDS ORDERED: NITROGLYCERIN SL 0.4 MG TABLET SL PRN (16:57)
[2019-02-26] MEDS ORDERED: HYDROmorphone 2 MG/1 ML VIAL IV PRN (16:57)
[2019-02-26] MEDS ORDERED: METOPROLOL SUCCINATE XL 25 MG TABLET PO ONE (17:01)
[2019-02-26] MEDS ORDERED: TICAGRELOR 90 MG TABLET PO ONE (17:08)
[2019-02-26] MEDS: ROSUVASTATIN 20 MG TABLET PO SCH (18:59)
[2019-02-26 19:18] LABS: Troponin I 0.595 NG/ML (0.00-0.045)
[2019-02-26] MEDS: DONEPEZIL 10 MG TABLET PO SCH (21:04)
[2019-02-26] MEDS: METOPROLOL SUCCINATE XL 25 MG TABLET PO SCH (21:05)
[2019-02-26] MEDS: glipiZIDE 5 MG TABLET PO SCH (21:05)
[2019-02-27 05:27] LABS: Basophils # 0.1 10*3/uL (0.0-0.2); Basophils % 0.5 % (0.0-0.8); Eosinophils # 0.1 10*3/uL (0.0-0.87); Eosinophils % 0.5 % (0.00-10.9); Hematocrit 35.5 VOL% (35.7-47.0); Hemoglobin 11.6 GM/DL (12.0-16.0); Immature Granulocytes % 0.3 %; Immature Granulocytes Absolute 0.03 #; Lymphocytes # 2.7 10*3/uL (1.4-4.0); Lymphocytes % 24.7 % (21.3-54.2); Mean Corpuscular HGB Conc 32.7 GM/DL (32-36); Mean Corpuscular Volume 92.7 FL (87-102); Mean Platelet Volume 11.3 FL (9.6-12.0); Monocytes % 8.5 % (1.7-12.7); Neutrophils % 65.5 % (38.7-73.9); Platelet Count 311 T/CUMM (130-400); Red Blood Count 3.83 MC/CUMM (3.8-5.5); Red Cell Distribution Width 14.2 % (9.3-17.3); White Blood Count 10.9 T/CUMM (4-12)
[2019-02-27 05:47] LABS: Calcium 8.5 MG/DL (8.5-10.1)
[2019-02-27 05:53] LABS: Troponin I 1.82 NG/ML (0.00-0.045)
[2019-02-27] MEDS: CARBIDOPA LEVODOPA PO SCH ×2 (08:27→15:08)
[2019-02-27] MEDS: METOPROLOL SUCCINATE XL 25 MG TABLET PO SCH ×2 (08:28→21:42)
[2019-02-27] MEDS: PANTOPRAZOLE 40 MG TABLET PO SCH (08:28)
[2019-02-27] MEDS: INSULIN LISPRO 100 UNIT/ML SUBCUT SCH ×4 (08:28→21:44)
[2019-02-27] MEDS: ASPIRIN EC 81 MG TABLET PO SCH (08:29)
[2019-02-27] MEDS: MULTIVITAMIN (CENTRUM) TABLET PO SCH (08:29)
[2019-02-27] MEDS: TICAGRELOR 90 MG TABLET PO SCH ×2 (08:29→21:42)
[2019-02-27] MEDS: ROSUVASTATIN 20 MG TABLET PO SCH (08:29)
[2019-02-27] MEDS: LOSARTAN 25 MG TABLET PO SCH (09:25)
[2019-02-27] MEDS: CARBIDOPA/LEVODOPA 25-100 MG TABLET PO SCH (21:40)
[2019-02-27] MEDS: glipiZIDE 5 MG TABLET PO SCH (21:41)
[2019-02-27] MEDS: DONEPEZIL 10 MG TABLET PO SCH (21:42)
[2019-02-28] MEDS: PANTOPRAZOLE 40 MG TABLET PO SCH (08:48)
[2019-02-28] MEDS: LOSARTAN 25 MG TABLET PO SCH (08:48)
[2019-02-28] MEDS: ASPIRIN EC 81 MG TABLET PO SCH (08:48)
[2019-02-28] MEDS: INSULIN LISPRO 100 UNIT/ML SUBCUT SCH ×4 (08:48→20:59)
[2019-02-28] MEDS: CARBIDOPA/LEVODOPA 25-100 MG TABLET PO SCH ×3 (08:48→21:00)
[2019-02-28] MEDS: ROSUVASTATIN 20 MG TABLET PO SCH (08:49)
[2019-02-28] MEDS: TICAGRELOR 90 MG TABLET PO SCH ×2 (08:49→21:00)
[2019-02-28] MEDS: MULTIVITAMIN (CENTRUM) TABLET PO SCH (08:49)
[2019-02-28] MEDS: METOPROLOL SUCCINATE XL 25 MG TABLET PO SCH ×2 (08:49→21:00)
[2019-02-28] MEDS: SPIRONOLACTONE 25 MG TABLET PO SCH (16:22)
[2019-02-28] MEDS: glipiZIDE 5 MG TABLET PO SCH (21:00)
[2019-02-28] MEDS: DONEPEZIL 10 MG TABLET PO SCH (21:00)
[2019-03-01 04:51] LABS: Basophils # 0.1 10*3/uL (0.0-0.2); Basophils % 0.5 % (0.0-0.8); Eosinophils # 0.1 10*3/uL (0.0-0.87); Eosinophils % 1.4 % (0.00-10.9); Hemoglobin 11.8 GM/DL (12.0-16.0); Immature Granulocytes % 0.3 %; Immature Granulocytes Absolute 0.03 #; Lymphocytes % 20.2 % (21.3-54.2); Mean Corpuscular HGB Conc 32.8 GM/DL (32-36); Mean Corpuscular Volume 91.8 FL (87-102); Mean Platelet Volume 11.3 FL (9.6-12.0); Monocytes % 8.7 % (1.7-12.7); Neutrophils % 68.9 % (38.7-73.9); Platelet Count 319 T/CUMM (130-400); Red Blood Count 3.92 MC/CUMM (3.8-5.5); Red Cell Distribution Width 14.3 % (9.3-17.3)
[2019-03-01 05:26] LABS: Alanine Aminotransferase < 6 U/L (13-56); Albumin 3.3 G/DL (3.4-5.0); Alkaline Phosphatase 77 U/L (45-117); Aspartate Amino Transferase 17 U/L (0-37); Blood Urea Nitrogen 39 MG/DL (7-18); Estimated Glom Filtration Rate 25 ML/MIN; Glucose 297 MG/DL (74-106); Osmolality,Calculated 285.4 MOS/KG (273-304); Total Protein 7.4 G/DL (6.4-8.3)
[2019-03-01] MEDS: INSULIN LISPRO 100 UNIT/ML SUBCUT SCH ×2 (08:28→11:31)
[2019-03-01] MEDS: ASPIRIN EC 81 MG TABLET PO SCH (08:29)
[2019-03-01] MEDS: TICAGRELOR 90 MG TABLET PO SCH (08:29)
[2019-03-01] MEDS: CARBIDOPA/LEVODOPA 25-100 MG TABLET PO SCH ×2 (08:29→14:57)
[2019-03-01] MEDS: METOPROLOL SUCCINATE XL 25 MG TABLET PO SCH (08:29)
[2019-03-01] MEDS: SPIRONOLACTONE 25 MG TABLET PO SCH (08:29)
[2019-03-01] MEDS: MULTIVITAMIN (CENTRUM) TABLET PO SCH (08:29)
[2019-03-01] MEDS: PANTOPRAZOLE 40 MG TABLET PO SCH (08:29)
[2019-03-01] MEDS: LOSARTAN 25 MG TABLET PO SCH (08:29)
[2019-03-01] MEDS: ROSUVASTATIN 20 MG TABLET PO SCH (08:30)
[2019-03-01 11:23] VITALS: BP 144/70
[2019-03-04] MEDS ORDERED: METOPROLOL SUCCINATE XL 25 MG TABLET PO ONE (18:00)
== END 2019-03-01 15:21 | disposition home or self-care (01) | DRG 246 ==
LOC: EDBD → EDUNIT# → N.EDINP 03:05 → N.ED 03:05 → N.TELES 05:49 → N.CC 02-26 17:36 → N.TELES 02-27 15:33
PROVIDERS: ADMIT Family Medicine; ATTEND Family Medicine

== ENCOUNTER 2021-03-12 12:54 | Inpatient (IN) ==
[2021-03-12] MEDS ORDERED: SODIUM CHLORIDE 0.9% 1,000 ML IV STA ×2 (13:24→15:30)
[2021-03-12 13:33] LABS: Basophils # 0.1 10*3/uL (0.0-0.2); Basophils % 0.3 % (0.0-0.8); Hematocrit 30.2 VOL% (35.7-47.0); Hemoglobin 9.5 GM/DL (12.0-16.0); Immature Granulocytes % 4.2 %; Immature Granulocytes Absolute 1.57 #; Lymphocytes # 1.9 10*3/uL (1.4-4.0); Lymphocytes % 5.1 % (21.3-54.2); Mean Corpuscular HGB Conc 31.5 GM/DL (32-36); Mean Corpuscular Volume 94.4 FL (87-102); Mean Platelet Volume 11.3 FL (9.6-12.0); Monocytes % 4.7 % (1.7-12.7); Neutrophils % 85.7 % (38.7-73.9); Platelet Count 318 T/CUMM (130-400); Red Cell Distribution Width 16.5 % (9.3-17.3); White Blood Count 37.5 T/CUMM (4-12)
[2021-03-12 14:01] LABS: Albumin 2.5 G/DL (3.4-5.0); Bilirubin,Total 0.6 MG/DL (0.20-1.00); Calcium 8.3 MG/DL (8.5-10.1); Osmolality,Calculated 291.4 MOS/KG (273-304); Potassium 4.6 MMOL/L (3.5-5.1); Total Protein 6.6 G/DL (6.4-8.2)
[2021-03-12 14:13] LABS: ABG HCO3 17.2 MMOL/L (20-26); ABG Oxygen Saturation 97.9 % (95-100); ABG PH 7.316 (7.35-7.45); ABG TCO2 15.3 MMOL/L (23-27)
[2021-03-12 14:22] LABS: Lymphocytes 9 % (20-55); Segmented Neutrophils 89 % (50-85); Total Cells Counted 100
[2021-03-12 14:25] LABS: Platelet Estimate Normal
[2021-03-12 14:27] LABS: Target Cells Slight; Tear Drop Cells Slight
[2021-03-12 14:50] LABS: Bacteria,Urine Many /HPF (Few); Bilirubin,Urine Negative (Negative); Blood, Urine Moderate mg/dL (Negative); Glucose,Urine (UA) Negative (Negative); Ketones,Urine 5 mg/dL (Negative); Nitrite,Urine Negative (Negative); Protein,Urine 100 MG/DL; RBC,Urine 5 /HPF (0-4); Squamous Epithelial Cell,Urine Occasional /HPF (0-10); Urine Appearance CLOUDY (Clear); Urine Color Red (Yellow); Urine Specific Gravity 1.015 (1.001-1.035); Urine Urobilinogen < 2.0 EU/DL (<2.0)
[2021-03-12] MEDS ORDERED: cefTRIAXone 1,000 MG in SODIUM CHLORIDE 0.9% 100 ML IV STA (15:01)
[2021-03-12 15:29] LABS: Barbiturates Screen,Urine Negative (Negative); Benzodiazepines Screen,Urine Negative (Negative); Cannabinoid Screen,Urine Negative (Negative); Opiate Screen,Urine Negative (Negative); Phencyclidine Screen,Urine Negative (Negative)
[2021-03-12] MEDS ORDERED: MEROPENEM 1,000 MG in SODIUM CHLORIDE 0.9% 100 ML IV ONE ×3 (16:38→19:30)
[2021-03-12] MEDS ORDERED: SODIUM CHLORIDE 0.9% 1,000 ML IV SCH (16:50)
[2021-03-12] MEDS ORDERED: ONDANSETRON 4 MG/2 ML VIAL IV PRN (16:55)
[2021-03-12] MEDS ORDERED: ETOMIDATE 40 MG/20 ML VIAL IV ONE (17:46)
[2021-03-12] MEDS ORDERED: propofoL 200 MG/20 ML VIAL IV ONE (17:46)
[2021-03-12] MEDS: PHENYLEPHRINE DRIP 40 MG/250 ML PREMIX IV PRN ×3 (18:04→23:25)
[2021-03-12] MEDS ORDERED: PHENYLEPHRINE DRIP 40 MG/250 ML PREMIX IV ONE (18:06)
[2021-03-12] MEDS ORDERED: SODIUM CHLORIDE 0.9% 1,000 ML IV ONE (18:12)
[2021-03-12] MEDS ORDERED: DEXTROSE 50% 25 GM/50 ML SYRINGE IV ONE (18:20)
[2021-03-12 18:26] LABS: Bacteria,Urine Many /HPF (Few); Bilirubin,Urine Negative (Negative); Blood, Urine Large mg/dL (Negative); Glucose,Urine (UA) Negative (Negative); Ketones,Urine Negative (Negative); Nitrite,Urine Negative (Negative); Protein,Urine 30 MG/DL; RBC,Urine 126 /HPF (0-4); Squamous Epithelial Cell,Urine Occasional /HPF (0-10); Urine Appearance CLOUDY (Clear); Urine Color Yellow (Yellow); Urine Specific Gravity 1.008 (1.001-1.035); Urine Urobilinogen < 2.0 EU/DL (<2.0)
[2021-03-12] MEDS ORDERED: DEXTROSE 10% 250 ML BAG IV PRN (19:29)
[2021-03-12] MEDS: SODIUM CHLORIDE 0.9% 1,000 ML IV SCH (19:43)
[2021-03-12] MEDS: ENOXAPARIN 30 MG/0.3 ML SYRINGE SUBCUT SCH (21:02)
[2021-03-12] MEDS: ESCITALOPRAM 10 MG TABLET PO SCH (21:02)
[2021-03-12] MEDS: PANTOPRAZOLE 40 MG VIAL IV SCH (21:02)
[2021-03-12] MEDS: DONEPEZIL 10 MG TABLET PO SCH (21:02)
[2021-03-12] MEDS: levETIRAcetam 500 MG TABLET PO SCH (21:02)
[2021-03-12] MEDS: LEVODOPA PO SCH (21:11)
[2021-03-12] MEDS: [UNRECOGNIZED DRUG - OTHER] PO SCH (21:11)
[2021-03-12] MEDS: CARBIDOPA PO SCH (21:11)
[2021-03-12] MEDS ORDERED: MORPHINE 2 MG/1 ML SYRINGE IV PRN (21:12)
[2021-03-13] MEDS: PHENYLEPHRINE DRIP 40 MG/250 ML PREMIX IV PRN ×3 (01:34→09:11)
[2021-03-13 01:40] LABS: Basophils # 0.1 10*3/uL (0.0-0.2); Basophils % 0.3 % (0.0-0.8); Hematocrit 26.6 VOL% (35.7-47.0); Hemoglobin 8.2 GM/DL (12.0-16.0); Immature Granulocytes % 5.4 %; Immature Granulocytes Absolute 2.68 #; Lymphocytes # 2.6 10*3/uL (1.4-4.0); Lymphocytes % 5.3 % (21.3-54.2); Mean Corpuscular HGB Conc 30.8 GM/DL (32-36); Mean Corpuscular Volume 97.1 FL (87-102); Mean Platelet Volume 11.5 FL (9.6-12.0); Monocytes % 4.2 % (1.7-12.7); Neutrophils % 84.8 % (38.7-73.9); Platelet Count 298 T/CUMM (130-400); Red Blood Count 2.74 MC/CUMM (3.8-5.5); Red Cell Distribution Width 17.8 % (9.3-17.3)
[2021-03-13 01:46] LABS: White Blood Count 49.3 T/CUMM (4-12)
[2021-03-13 01:56] LABS: Alanine Aminotransferase < 9 U/L (13-56); Albumin 2.1 G/DL (3.4-5.0); Alkaline Phosphatase 60 U/L (45-117); Aspartate Amino Transferase 25 U/L (0-37); Bilirubin,Total < 0.39 MG/DL (0.20-1.00); Blood Urea Nitrogen 48 MG/DL (7-18); Calcium 7.8 MG/DL (8.5-10.1); Carbon Dioxide 18 MMOL/L (21-32); Estimated Glom Filtration Rate 17 ML/MIN; Glucose 99 MG/DL (74-106); Potassium 4.8 MMOL/L (3.5-5.1); Sodium 143 MMOL/L (136-145); Total Protein 6.1 G/DL (6.4-8.2)
[2021-03-13] MEDS: SODIUM CHLORIDE 0.9% 1,000 ML IV SCH ×3 (03:22→23:44)
[2021-03-13 04:12] LABS: Band Neutrophils 4 % (0-10); Lymphocytes 5 % (20-55); Segmented Neutrophils 89 % (50-85); Total Cells Counted 100
[2021-03-13 04:13] LABS: Anisocytosis 1+; Platelet Estimate Normal
[2021-03-13 04:14] LABS: Microcytosis 1+; Ovalocytes Slight
[2021-03-13] MEDS: MEROPENEM 500 MG in SODIUM CHLORIDE 0.9% 100 ML IV SCH ×2 (06:17→18:41)
[2021-03-13] MEDS ORDERED: DEXTROSE 10% 250 ML BAG IV PRN (07:08)
[2021-03-13] MEDS ORDERED: GLUCAGON 1 MG VIAL IM PRN (07:08)
[2021-03-13 07:47] LABS: Alanine Aminotransferase 9 U/L (13-56); Albumin 2.2 G/DL (3.4-5.0); Alkaline Phosphatase 63 U/L (45-117); Aspartate Amino Transferase 30 U/L (0-37); Bilirubin,Total < 0.39 MG/DL (0.20-1.00); Blood Urea Nitrogen 46 MG/DL (7-18); Calcium 7.5 MG/DL (8.5-10.1); Carbon Dioxide 16 MMOL/L (21-32); Estimated Glom Filtration Rate 17 ML/MIN; Glucose 71 MG/DL (74-106); Osmolality,Calculated 297.7 MOS/KG (273-304); Potassium 4.9 MMOL/L (3.5-5.1); Sodium 145 MMOL/L (136-145); Total Protein 5.6 G/DL (6.4-8.2)
[2021-03-13] MEDS: CARBIDOPA PO SCH ×3 (10:31→21:18)
[2021-03-13] MEDS: ASPIRIN EC 81 MG TABLET PO SCH (10:31)
[2021-03-13] MEDS: levETIRAcetam 500 MG TABLET PO SCH ×2 (10:31→21:18)
[2021-03-13] MEDS: LEVODOPA PO SCH ×3 (10:31→21:18)
[2021-03-13] MEDS: [UNRECOGNIZED DRUG - OTHER] PO SCH ×3 (10:31→21:18)
[2021-03-13] MEDS: MAGNESIUM SULF RIDER 2 GM/50 ML PREMIX IV PRN ×2 (10:36→12:25)
[2021-03-13] MEDS: ALBUTEROL/IPRATROPIUM 3 ML NEB RESP TX PRN (13:30)
[2021-03-13] MEDS: DONEPEZIL 10 MG TABLET PO SCH (21:18)
[2021-03-13] MEDS: ESCITALOPRAM 10 MG TABLET PO SCH (21:18)
[2021-03-13] MEDS: ENOXAPARIN 30 MG/0.3 ML SYRINGE SUBCUT SCH (21:19)
[2021-03-13] MEDS: PANTOPRAZOLE 40 MG VIAL IV SCH (21:19)
[2021-03-14] MEDS: MEROPENEM 500 MG in SODIUM CHLORIDE 0.9% 100 ML IV SCH ×2 (06:07→18:45)
[2021-03-14 07:32] LABS: Basophils # 0.1 10*3/uL (0.0-0.2); Basophils % 0.3 % (0.0-0.8); Eosinophils # 0.1 10*3/uL (0.0-0.87); Eosinophils % 0.3 % (0.00-10.9); Immature Granulocytes % 2.7 %; Immature Granulocytes Absolute 0.82 #; Lymphocytes # 2.8 10*3/uL (1.4-4.0); Mean Corpuscular HGB Conc 30.8 GM/DL (32-36); Mean Corpuscular Volume 96.7 FL (87-102); Mean Platelet Volume 11.6 FL (9.6-12.0); Monocytes % 3.2 % (1.7-12.7); Neutrophils % 84.5 % (38.7-73.9); Platelet Count 253 T/CUMM (130-400); Red Blood Count 2.69 MC/CUMM (3.8-5.5); Red Cell Distribution Width 18.3 % (9.3-17.3); White Blood Count 30.7 T/CUMM (4-12)
[2021-03-14 08:11] LABS: Alanine Aminotransferase < 6 U/L (13-56); Albumin 1.8 G/DL (3.4-5.0); Alkaline Phosphatase 72 U/L (45-117); Aspartate Amino Transferase 80 U/L (0-37); Bilirubin,Total < 0.39 MG/DL (0.20-1.00); Blood Urea Nitrogen 51 MG/DL (7-18); Calcium 7.5 MG/DL (8.5-10.1); Carbon Dioxide 15 MMOL/L (21-32); Estimated Glom Filtration Rate 20 ML/MIN; Glucose 77 MG/DL (74-106); Osmolality,Calculated 293.3 MOS/KG (273-304); Potassium 4.7 MMOL/L (3.5-5.1); Sodium 141 MMOL/L (136-145); Total Protein 5.8 G/DL (6.4-8.2)
[2021-03-14] MEDS ORDERED: POLYETHYLENE GLYCOL POWDER 17 GM PACK PO PRN (08:14)
[2021-03-14 08:53] LABS: Anisocytosis 1+; Band Neutrophils 28 % (0-10); Burr Cells 1+; Lymphocytes 9 % (20-55); Macrocytosis 1+; Metamyelocytes 1 %; Myelocytes 1 %; Platelet Estimate Normal; Segmented Neutrophils 59 % (50-85); Total Cells Counted 100
[2021-03-14] MEDS: ASPIRIN EC 81 MG TABLET PO SCH (10:13)
[2021-03-14] MEDS: levETIRAcetam 500 MG TABLET PO SCH ×2 (10:13→21:18)
[2021-03-14] MEDS: CARBIDOPA PO SCH ×3 (10:14→21:30)
[2021-03-14] MEDS: [UNRECOGNIZED DRUG - OTHER] PO SCH ×3 (10:14→21:30)
[2021-03-14] MEDS: LEVODOPA PO SCH ×3 (10:14→21:30)
[2021-03-14 10:48] LABS: Calcium 7.8 MG/DL (8.5-10.1); Osmolality,Calculated 293.4 MOS/KG (273-304); Potassium 4.6 MMOL/L (3.5-5.1)
[2021-03-14] MEDS ORDERED: SODIUM BICARBONATE 50 MEQ/50 ML VIAL IV ONE (11:19)
[2021-03-14] MEDS ORDERED: MAGNESIUM SULF RIDER 4 GM/100 ML PREMIX IV PRN (11:25)
[2021-03-14] MEDS ORDERED: MAGNESIUM SULF RIDER 2 GM/50 ML PREMIX IV PRN (11:25)
[2021-03-14] MEDS ORDERED: MAGNESIUM HYDROXIDE SUSP 30 ML UDCUP PO PRN (12:14)
[2021-03-14] MEDS: INSULIN LISPRO 100 UNIT/ML SUBCUT SCH ×2 (16:46→21:17)
[2021-03-14] MEDS: ALBUTEROL/IPRATROPIUM 3 ML NEB RESP TX PRN (18:10)
[2021-03-14] MEDS: DONEPEZIL 10 MG TABLET PO SCH (21:14)
[2021-03-14] MEDS: METOPROLOL SUCCINATE XL 25 MG TABLET PO SCH (21:15)
[2021-03-14] MEDS: TICAGRELOR 90 MG TABLET PO SCH (21:15)
[2021-03-14] MEDS: ESCITALOPRAM 10 MG TABLET PO SCH (21:18)
[2021-03-14] MEDS: ENOXAPARIN 30 MG/0.3 ML SYRINGE SUBCUT SCH (21:19)
[2021-03-14] MEDS: PANTOPRAZOLE 40 MG VIAL IV SCH (21:19)
[2021-03-15] MEDS: MEROPENEM 500 MG in SODIUM CHLORIDE 0.9% 100 ML IV SCH ×2 (05:30→19:07)
[2021-03-15 05:59] LABS: Basophils # 0.1 10*3/uL (0.0-0.2); Basophils % 0.3 % (0.0-0.8); Eosinophils # 0.1 10*3/uL (0.0-0.87); Eosinophils % 0.4 % (0.00-10.9); Hematocrit 26.8 VOL% (35.7-47.0); Hemoglobin 8.6 GM/DL (12.0-16.0); Immature Granulocytes % 2.2 %; Immature Granulocytes Absolute 0.49 #; Lymphocytes # 1.9 10*3/uL (1.4-4.0); Lymphocytes % 8.6 % (21.3-54.2); Mean Corpuscular HGB Conc 32.1 GM/DL (32-36); Mean Corpuscular Volume 93.4 FL (87-102); Mean Platelet Volume 11.6 FL (9.6-12.0); Monocytes % 4.1 % (1.7-12.7); Neutrophils % 84.4 % (38.7-73.9); Platelet Count 276 T/CUMM (130-400); Red Blood Count 2.87 MC/CUMM (3.8-5.5); Red Cell Distribution Width 17.8 % (9.3-17.3); White Blood Count 22.5 T/CUMM (4-12)
[2021-03-15 06:19] LABS: Hypochromia 1+; Lymphocytes 6 % (20-55); Microcytosis 1+; Platelet Estimate Adequate; Segmented Neutrophils 91 % (50-85); Total Cells Counted 100
[2021-03-15 06:29] LABS: Osmolality,Calculated 296.4 MOS/KG (273-304); Potassium 4.6 MMOL/L (3.5-5.1)
[2021-03-15] MEDS: INSULIN LISPRO 100 UNIT/ML SUBCUT SCH ×4 (08:57→21:31)
[2021-03-15] MEDS: METOPROLOL SUCCINATE XL 25 MG TABLET PO SCH ×2 (08:58→21:30)
[2021-03-15] MEDS: PANTOPRAZOLE 40 MG TABLET PO SCH (08:58)
[2021-03-15] MEDS: levETIRAcetam 500 MG TABLET PO SCH ×2 (08:58→21:33)
[2021-03-15] MEDS: CARBIDOPA PO SCH ×3 (08:59→22:03)
[2021-03-15] MEDS: LEVODOPA PO SCH ×3 (08:59→22:03)
[2021-03-15] MEDS: TICAGRELOR 90 MG TABLET PO SCH ×2 (08:59→21:30)
[2021-03-15] MEDS: CHOLECALCIFEROL 5,000 UNIT TABLET PO SCH (08:59)
[2021-03-15] MEDS: ASPIRIN EC 81 MG TABLET PO SCH (08:59)
[2021-03-15] MEDS: [UNRECOGNIZED DRUG - OTHER] PO SCH ×3 (08:59→22:03)
[2021-03-15] MEDS: FERROUS SULFATE 325 MG TABLET PO SCH (08:59)
[2021-03-15] MEDS: ALBUTEROL/IPRATROPIUM 3 ML NEB RESP TX PRN (15:14)
[2021-03-15] MEDS: ESCITALOPRAM 10 MG TABLET PO SCH (21:29)
[2021-03-15] MEDS: ROSUVASTATIN 20 MG TABLET PO SCH (21:29)
[2021-03-15] MEDS: DONEPEZIL 10 MG TABLET PO SCH (21:29)
[2021-03-15] MEDS: ENOXAPARIN 30 MG/0.3 ML SYRINGE SUBCUT SCH (21:30)
[2021-03-15] MEDS ORDERED: GLUCAGON 1 MG VIAL IM PRN (21:33)
[2021-03-15] MEDS ORDERED: DEXTROSE 50% 25 GM/50 ML VIAL IV PRN (21:33)
[2021-03-16] MEDS: MEROPENEM 500 MG in SODIUM CHLORIDE 0.9% 100 ML IV SCH ×2 (06:07→17:14)
[2021-03-16 06:29] LABS: Basophils % 0.3 % (0.0-0.8); Eosinophils # 0.2 10*3/uL (0.0-0.87); Eosinophils % 1.5 % (0.00-10.9); Hematocrit 26.1 VOL% (35.7-47.0); Immature Granulocytes % 1.2 %; Immature Granulocytes Absolute 0.17 #; Lymphocytes # 2.3 10*3/uL (1.4-4.0); Lymphocytes % 16.1 % (21.3-54.2); Mean Corpuscular HGB Conc 30.7 GM/DL (32-36); Mean Corpuscular Volume 93.2 FL (87-102); Mean Platelet Volume 11.4 FL (9.6-12.0); Monocytes % 5.2 % (1.7-12.7); Neutrophils % 75.7 % (38.7-73.9); Platelet Count 240 T/CUMM (130-400)
[2021-03-16 06:48] LABS: Albumin 1.8 G/DL (3.4-5.0); Bilirubin,Total 0.4 MG/DL (0.20-1.00); Calcium 8.3 MG/DL (8.5-10.1); Osmolality,Calculated 289.8 MOS/KG (273-304); Potassium 4.2 MMOL/L (3.5-5.1)
[2021-03-16] MEDS: INSULIN LISPRO 100 UNIT/ML SUBCUT SCH ×4 (08:26→21:46)
[2021-03-16] MEDS: ASPIRIN EC 81 MG TABLET PO SCH (08:28)
[2021-03-16] MEDS: TICAGRELOR 90 MG TABLET PO SCH ×2 (08:28→21:37)
[2021-03-16] MEDS: levETIRAcetam 500 MG TABLET PO SCH ×2 (08:28→21:36)
[2021-03-16] MEDS: FERROUS SULFATE 325 MG TABLET PO SCH (08:28)
[2021-03-16] MEDS: CHOLECALCIFEROL 5,000 UNIT TABLET PO SCH (08:28)
[2021-03-16] MEDS: PANTOPRAZOLE 40 MG TABLET PO SCH (08:28)
[2021-03-16] MEDS: METOPROLOL SUCCINATE XL 25 MG TABLET PO SCH ×2 (08:28→21:36)
[2021-03-16] MEDS: LEVODOPA PO SCH ×3 (08:30→21:39)
[2021-03-16] MEDS: [UNRECOGNIZED DRUG - OTHER] PO SCH ×3 (08:30→21:39)
[2021-03-16] MEDS: CARBIDOPA PO SCH ×3 (08:30→21:39)
[2021-03-16] MEDS: DONEPEZIL 10 MG TABLET PO SCH (21:35)
[2021-03-16] MEDS: ROSUVASTATIN 20 MG TABLET PO SCH (21:37)
[2021-03-16] MEDS: ESCITALOPRAM 10 MG TABLET PO SCH (21:38)
[2021-03-16] MEDS: ENOXAPARIN 30 MG/0.3 ML SYRINGE SUBCUT SCH (21:45)
[2021-03-17 06:08] LABS: Basophils # 0.1 10*3/uL (0.0-0.2); Basophils % 0.3 % (0.0-0.8); Eosinophils # 0.3 10*3/uL (0.0-0.87); Eosinophils % 1.7 % (0.00-10.9); Hematocrit 26.3 VOL% (35.7-47.0); Hemoglobin 8.4 GM/DL (12.0-16.0); Immature Granulocytes % 1.9 %; Immature Granulocytes Absolute 0.28 #; Lymphocytes # 2.1 10*3/uL (1.4-4.0); Lymphocytes % 14.2 % (21.3-54.2); Mean Corpuscular HGB Conc 31.9 GM/DL (32-36); Mean Corpuscular Volume 92.9 FL (87-102); Mean Platelet Volume 11.2 FL (9.6-12.0); Monocytes % 4.9 % (1.7-12.7); Platelet Count 287 T/CUMM (130-400); Red Blood Count 2.83 MC/CUMM (3.8-5.5); Red Cell Distribution Width 17.3 % (9.3-17.3); White Blood Count 14.5 T/CUMM (4-12)
[2021-03-17 06:28] LABS: Osmolality,Calculated 289.7 MOS/KG (273-304); Potassium 3.8 MMOL/L (3.5-5.1)
[2021-03-17] MEDS: MEROPENEM 500 MG in SODIUM CHLORIDE 0.9% 100 ML IV SCH ×2 (06:47→17:30)
[2021-03-17] MEDS: INSULIN LISPRO 100 UNIT/ML SUBCUT SCH ×4 (07:23→21:18)
[2021-03-17] MEDS: POTASSIUM BICARB EFFERVESCENT 20 MEQ TAB.EFF PER TUBE PRN (09:00)
[2021-03-17] MEDS: levETIRAcetam 500 MG TABLET PO SCH ×2 (09:01→21:17)
[2021-03-17] MEDS: PANTOPRAZOLE 40 MG TABLET PO SCH (09:01)
[2021-03-17] MEDS: FERROUS SULFATE 325 MG TABLET PO SCH (09:01)
[2021-03-17] MEDS: METOPROLOL SUCCINATE XL 25 MG TABLET PO SCH ×2 (09:01→21:19)
[2021-03-17] MEDS: TICAGRELOR 90 MG TABLET PO SCH ×2 (09:01→21:17)
[2021-03-17] MEDS: ASPIRIN EC 81 MG TABLET PO SCH (09:02)
[2021-03-17] MEDS: CARBIDOPA PO SCH ×3 (09:02→21:18)
[2021-03-17] MEDS: CHOLECALCIFEROL 5,000 UNIT TABLET PO SCH (09:02)
[2021-03-17] MEDS: LEVODOPA PO SCH ×3 (09:02→21:18)
[2021-03-17] MEDS: [UNRECOGNIZED DRUG - OTHER] PO SCH ×3 (09:02→21:18)
[2021-03-17] MEDS: ROSUVASTATIN 20 MG TABLET PO SCH (21:17)
[2021-03-17] MEDS: DONEPEZIL 10 MG TABLET PO SCH (21:17)
[2021-03-17] MEDS: ENOXAPARIN 30 MG/0.3 ML SYRINGE SUBCUT SCH (21:19)
[2021-03-17] MEDS: ESCITALOPRAM 10 MG TABLET PO SCH (21:19)
[2021-03-18] MEDS: MEROPENEM 500 MG in SODIUM CHLORIDE 0.9% 100 ML IV SCH ×2 (05:48→17:51)
[2021-03-18 06:36] LABS: Basophils % 0.3 % (0.0-0.8); Eosinophils # 0.2 10*3/uL (0.0-0.87); Eosinophils % 1.7 % (0.00-10.9); Hematocrit 23.3 VOL% (35.7-47.0); Hemoglobin 7.4 GM/DL (12.0-16.0); Immature Granulocytes % 6.7 %; Immature Granulocytes Absolute 0.93 #; Lymphocytes # 2.3 10*3/uL (1.4-4.0); Lymphocytes % 16.8 % (21.3-54.2); Mean Corpuscular HGB Conc 31.8 GM/DL (32-36); Mean Corpuscular Volume 92.5 FL (87-102); Mean Platelet Volume 11.1 FL (9.6-12.0); Monocytes % 3.3 % (1.7-12.7); NRBC # 0.02 10*3/uL; Neutrophils % 71.2 % (38.7-73.9); Platelet Count 322 T/CUMM (130-400); Red Blood Count 2.52 MC/CUMM (3.8-5.5); Red Cell Distribution Width 17.3 % (9.3-17.3)
[2021-03-18 06:57] LABS: Osmolality,Calculated 289.5 MOS/KG (273-304); Potassium 3.8 MMOL/L (3.5-5.1)
[2021-03-18 07:06] LABS: Band Neutrophils 4 % (0-10); Eosinophils 1 % (0-10); Hypochromia 1+; Lymphocytes 18 % (20-55); Metamyelocytes 1 %; Microcytosis 1+; Segmented Neutrophils 74 % (50-85); Total Cells Counted 100
[2021-03-18 07:07] LABS: Platelet Estimate Normal; Polychromasia Slight; Target Cells Slight
[2021-03-18] MEDS: INSULIN LISPRO 100 UNIT/ML SUBCUT SCH ×4 (07:26→21:52)
[2021-03-18] MEDS: CHOLECALCIFEROL 5,000 UNIT TABLET PO SCH (09:26)
[2021-03-18] MEDS: FERROUS SULFATE 325 MG TABLET PO SCH (09:26)
[2021-03-18] MEDS: ASPIRIN EC 81 MG TABLET PO SCH (09:26)
[2021-03-18] MEDS: levETIRAcetam 500 MG TABLET PO SCH ×2 (09:26→21:53)
[2021-03-18] MEDS: POTASSIUM BICARB EFFERVESCENT 20 MEQ TAB.EFF PER TUBE PRN (09:26)
[2021-03-18] MEDS: TICAGRELOR 90 MG TABLET PO SCH ×2 (09:26→21:53)
[2021-03-18] MEDS: METOPROLOL SUCCINATE XL 25 MG TABLET PO SCH ×2 (09:27→21:53)
[2021-03-18] MEDS: PANTOPRAZOLE 40 MG TABLET PO SCH (09:27)
[2021-03-18] MEDS: [UNRECOGNIZED DRUG - OTHER] PO SCH ×3 (09:28→21:53)
[2021-03-18] MEDS: LEVODOPA PO SCH ×3 (09:28→21:53)
[2021-03-18] MEDS: CARBIDOPA PO SCH ×3 (09:28→21:53)
[2021-03-18] MEDS ORDERED: SODIUM CHLORIDE 0.9% 1,000 ML IV PRN (13:55)
[2021-03-18] MEDS: DONEPEZIL 10 MG TABLET PO SCH (21:52)
[2021-03-18] MEDS: ENOXAPARIN 30 MG/0.3 ML SYRINGE SUBCUT SCH (21:53)
[2021-03-18] MEDS: ESCITALOPRAM 10 MG TABLET PO SCH (21:53)
[2021-03-18] MEDS: ROSUVASTATIN 20 MG TABLET PO SCH (21:53)
[2021-03-19] MEDS: MEROPENEM 500 MG in SODIUM CHLORIDE 0.9% 100 ML IV SCH ×2 (06:04→17:47)
[2021-03-19 06:05] LABS: Basophils # 0.1 10*3/uL (0.0-0.2); Basophils % 0.4 % (0.0-0.8); Eosinophils # 0.3 10*3/uL (0.0-0.87); Eosinophils % 1.9 % (0.00-10.9); Hematocrit 25.6 VOL% (35.7-47.0); Hemoglobin 8.1 GM/DL (12.0-16.0); Immature Granulocytes % 3.5 %; Immature Granulocytes Absolute 0.54 #; Lymphocytes # 2.6 10*3/uL (1.4-4.0); Lymphocytes % 16.8 % (21.3-54.2); Mean Corpuscular HGB Conc 31.6 GM/DL (32-36); Mean Corpuscular Volume 92.1 FL (87-102); Monocytes % 3.4 % (1.7-12.7); Platelet Count 389 T/CUMM (130-400); Red Blood Count 2.78 MC/CUMM (3.8-5.5); Red Cell Distribution Width 17.3 % (9.3-17.3); White Blood Count 15.5 T/CUMM (4-12)
[2021-03-19 06:58] LABS: Band Neutrophils 3 % (0-10); Eosinophils 2 % (0-10); Hypochromia 1+; Lymphocytes 19 % (20-55); Microcytosis 1+; Myelocytes 1 %; Platelet Estimate Adequate; Segmented Neutrophils 73 % (50-85); Total Cells Counted 100
[2021-03-19] MEDS: INSULIN LISPRO 100 UNIT/ML SUBCUT SCH ×4 (09:30→21:00)
[2021-03-19] MEDS: [UNRECOGNIZED DRUG - OTHER] PO SCH ×3 (11:11→21:00)
[2021-03-19] MEDS: CARBIDOPA PO SCH ×3 (11:11→21:00)
[2021-03-19] MEDS: LEVODOPA PO SCH ×3 (11:11→21:00)
[2021-03-19] MEDS: TICAGRELOR 90 MG TABLET PO SCH ×2 (11:53→20:59)
[2021-03-19] MEDS: levETIRAcetam 500 MG TABLET PO SCH ×2 (11:53→21:00)
[2021-03-19] MEDS: FERROUS SULFATE 325 MG TABLET PO SCH (11:53)
[2021-03-19] MEDS: ASPIRIN EC 81 MG TABLET PO SCH (11:53)
[2021-03-19] MEDS: CHOLECALCIFEROL 5,000 UNIT TABLET PO SCH (11:54)
[2021-03-19] MEDS: PANTOPRAZOLE 40 MG TABLET PO SCH (11:54)
[2021-03-19] MEDS: METOPROLOL SUCCINATE XL 25 MG TABLET PO SCH ×2 (11:54→21:00)
[2021-03-19] MEDS: ROSUVASTATIN 20 MG TABLET PO SCH (20:59)
[2021-03-19] MEDS: ESCITALOPRAM 10 MG TABLET PO SCH (20:59)
[2021-03-19] MEDS: DONEPEZIL 10 MG TABLET PO SCH (21:00)
[2021-03-19] MEDS: ENOXAPARIN 30 MG/0.3 ML SYRINGE SUBCUT SCH (21:01)
[2021-03-20 05:40] LABS: Basophils # 0.1 10*3/uL (0.0-0.2); Basophils % 0.4 % (0.0-0.8); Eosinophils # 0.2 10*3/uL (0.0-0.87); Eosinophils % 1.3 % (0.00-10.9); Hematocrit 25.8 VOL% (35.7-47.0); Hemoglobin 8.3 GM/DL (12.0-16.0); Immature Granulocytes Absolute 0.44 #; Lymphocytes # 2.3 10*3/uL (1.4-4.0); Lymphocytes % 15.6 % (21.3-54.2); Mean Corpuscular HGB Conc 32.2 GM/DL (32-36); Mean Corpuscular Volume 90.5 FL (87-102); Mean Platelet Volume 11.1 FL (9.6-12.0); Monocytes % 4.1 % (1.7-12.7); Neutrophils % 75.6 % (38.7-73.9); Platelet Count 423 T/CUMM (130-400); Red Blood Count 2.85 MC/CUMM (3.8-5.5); Red Cell Distribution Width 16.7 % (9.3-17.3); White Blood Count 14.8 T/CUMM (4-12)
[2021-03-20] MEDS: MEROPENEM 500 MG in SODIUM CHLORIDE 0.9% 100 ML IV SCH (06:07)
[2021-03-20 06:17] LABS: Hypochromia Slight; Platelet Estimate Increased
[2021-03-20 06:20] LABS: Calcium 7.9 MG/DL (8.5-10.1); Potassium 3.5 MMOL/L (3.5-5.1)
[2021-03-20] MEDS: INSULIN LISPRO 100 UNIT/ML SUBCUT SCH ×4 (08:44→21:38)
[2021-03-20] MEDS: ASPIRIN EC 81 MG TABLET PO SCH (09:23)
[2021-03-20] MEDS: FERROUS SULFATE 325 MG TABLET PO SCH ×2 (10:32→10:50)
[2021-03-20] MEDS: PANTOPRAZOLE 40 MG TABLET PO SCH (10:32)
[2021-03-20] MEDS: TICAGRELOR 90 MG TABLET PO SCH ×3 (10:32→21:38)
[2021-03-20] MEDS: levETIRAcetam 500 MG TABLET PO SCH ×2 (10:32→21:39)
[2021-03-20] MEDS: CHOLECALCIFEROL 5,000 UNIT TABLET PO SCH (10:32)
[2021-03-20] MEDS: METOPROLOL SUCCINATE XL 25 MG TABLET PO SCH ×2 (10:35→21:39)
[2021-03-20] MEDS: [UNRECOGNIZED DRUG - OTHER] PO SCH ×3 (10:48→21:38)
[2021-03-20] MEDS: LEVODOPA PO SCH ×3 (10:48→21:38)
[2021-03-20] MEDS: CARBIDOPA PO SCH ×3 (10:48→21:38)
[2021-03-20] MEDS: SPIRONOLACTONE 25 MG TABLET PO SCH (18:19)
[2021-03-20] MEDS: DONEPEZIL 10 MG TABLET PO SCH (21:38)
[2021-03-20] MEDS: ROSUVASTATIN 20 MG TABLET PO SCH (21:38)
[2021-03-20] MEDS: ESCITALOPRAM 10 MG TABLET PO SCH (21:39)
[2021-03-20] MEDS: ENOXAPARIN 30 MG/0.3 ML SYRINGE SUBCUT SCH (21:39)
[2021-03-21 06:40] LABS: Basophils # 0.1 10*3/uL (0.0-0.2); Basophils % 0.4 % (0.0-0.8); Eosinophils # 0.2 10*3/uL (0.0-0.87); Eosinophils % 1.4 % (0.00-10.9); Hematocrit 29.1 VOL% (35.7-47.0); Hemoglobin 9.3 GM/DL (12.0-16.0); Immature Granulocytes % 1.9 %; Immature Granulocytes Absolute 0.32 #; Lymphocytes # 2.4 10*3/uL (1.4-4.0); Lymphocytes % 14.4 % (21.3-54.2); Mean Corpuscular Volume 91.5 FL (87-102); Monocytes % 5.3 % (1.7-12.7); Neutrophils % 76.6 % (38.7-73.9); Platelet Count 529 T/CUMM (130-400); Red Blood Count 3.18 MC/CUMM (3.8-5.5); Red Cell Distribution Width 16.7 % (9.3-17.3); White Blood Count 16.5 T/CUMM (4-12)
[2021-03-21 07:12] LABS: Calcium 8.3 MG/DL (8.5-10.1); Osmolality,Calculated 291.3 MOS/KG (273-304); Potassium 3.4 MMOL/L (3.5-5.1)
[2021-03-21] MEDS: PANTOPRAZOLE 40 MG TABLET PO SCH (09:52)
[2021-03-21] MEDS: CHOLECALCIFEROL 5,000 UNIT TABLET PO SCH (09:52)
[2021-03-21] MEDS: METOPROLOL SUCCINATE XL 25 MG TABLET PO SCH ×2 (09:52→22:09)
[2021-03-21] MEDS: levETIRAcetam 500 MG TABLET PO SCH ×2 (09:53→22:11)
[2021-03-21] MEDS: FERROUS SULFATE 325 MG TABLET PO SCH (09:53)
[2021-03-21] MEDS: SPIRONOLACTONE 25 MG TABLET PO SCH (09:53)
[2021-03-21] MEDS: ASPIRIN EC 81 MG TABLET PO SCH (09:53)
[2021-03-21] MEDS: CARBIDOPA PO SCH ×3 (09:56→22:12)
[2021-03-21] MEDS: INSULIN LISPRO 100 UNIT/ML SUBCUT SCH ×4 (09:56→22:09)
[2021-03-21] MEDS: LEVODOPA PO SCH ×3 (09:56→22:12)
[2021-03-21] MEDS: [UNRECOGNIZED DRUG - OTHER] PO SCH ×3 (09:56→22:12)
[2021-03-21] MEDS: TICAGRELOR 90 MG TABLET PO SCH (10:22)
[2021-03-21] MEDS ORDERED: POTASSIUM CHLORIDE 20 MEQ TABLET PO ONE (10:33)
[2021-03-21] MEDS: MEROPENEM 500 MG in SODIUM CHLORIDE 0.9% 100 ML IV SCH ×2 (15:16→22:14)
[2021-03-21] MEDS: ENOXAPARIN 30 MG/0.3 ML SYRINGE SUBCUT SCH (22:09)
[2021-03-21] MEDS: ESCITALOPRAM 10 MG TABLET PO SCH (22:10)
[2021-03-21] MEDS: NYSTATIN CREAM 15 GM TUBE TOP PRN (22:11)
[2021-03-21] MEDS: DONEPEZIL 10 MG TABLET PO SCH (22:11)
[2021-03-21] MEDS: ROSUVASTATIN 20 MG TABLET PO SCH (22:11)
[2021-03-22 05:33] LABS: Basophils # 0.1 10*3/uL (0.0-0.2); Basophils % 0.4 % (0.0-0.8); Eosinophils # 0.2 10*3/uL (0.0-0.87); Eosinophils % 1.3 % (0.00-10.9); Hematocrit 26.5 VOL% (35.7-47.0); Hemoglobin 8.5 GM/DL (12.0-16.0); Immature Granulocytes % 1.2 %; Immature Granulocytes Absolute 0.14 #; Lymphocytes # 2.1 10*3/uL (1.4-4.0); Mean Corpuscular HGB Conc 32.1 GM/DL (32-36); Mean Corpuscular Volume 90.4 FL (87-102); Mean Platelet Volume 10.8 FL (9.6-12.0); Monocytes % 7.2 % (1.7-12.7); Neutrophils % 72.9 % (38.7-73.9); Platelet Count 482 T/CUMM (130-400); Red Blood Count 2.93 MC/CUMM (3.8-5.5); Red Cell Distribution Width 16.4 % (9.3-17.3); White Blood Count 12.2 T/CUMM (4-12)
[2021-03-22 06:03] LABS: Calcium 7.9 MG/DL (8.5-10.1); Osmolality,Calculated 286.4 MOS/KG (273-304); Potassium 3.2 MMOL/L (3.5-5.1)
[2021-03-22] MEDS ORDERED: POTASSIUM CHLORIDE 20 MEQ TABLET PO ONE (07:04)
[2021-03-22] MEDS: MEROPENEM 500 MG in SODIUM CHLORIDE 0.9% 100 ML IV SCH ×2 (08:39→21:42)
[2021-03-22] MEDS: ASPIRIN EC 81 MG TABLET PO SCH (08:40)
[2021-03-22] MEDS: INSULIN LISPRO 100 UNIT/ML SUBCUT SCH ×4 (08:40→21:44)
[2021-03-22] MEDS: FERROUS SULFATE 325 MG TABLET PO SCH (08:40)
[2021-03-22] MEDS: PANTOPRAZOLE 40 MG TABLET PO SCH (08:40)
[2021-03-22] MEDS: METOPROLOL SUCCINATE XL 25 MG TABLET PO SCH ×2 (08:40→21:43)
[2021-03-22] MEDS: levETIRAcetam 500 MG TABLET PO SCH ×2 (08:40→21:44)
[2021-03-22] MEDS: SPIRONOLACTONE 25 MG TABLET PO SCH (08:40)
[2021-03-22] MEDS: NYSTATIN CREAM 15 GM TUBE TOP PRN (08:41)
[2021-03-22] MEDS: LEVODOPA PO SCH ×3 (08:42→21:45)
[2021-03-22] MEDS: CARBIDOPA PO SCH ×3 (08:42→21:45)
[2021-03-22] MEDS: [UNRECOGNIZED DRUG - OTHER] PO SCH ×3 (08:42→21:45)
[2021-03-22] MEDS: CHOLECALCIFEROL 5,000 UNIT TABLET PO SCH (09:40)
[2021-03-22] MEDS ORDERED: ACETAMINOPHEN 325 MG TABLET PO PRN (13:45)
[2021-03-22] MEDS: ESCITALOPRAM 10 MG TABLET PO SCH (21:43)
[2021-03-22] MEDS: DONEPEZIL 10 MG TABLET PO SCH (21:44)
[2021-03-22] MEDS: ROSUVASTATIN 20 MG TABLET PO SCH (21:44)
[2021-03-22] MEDS: ENOXAPARIN 30 MG/0.3 ML SYRINGE SUBCUT SCH (21:45)
[2021-03-23 06:31] LABS: Basophils # 0.1 10*3/uL (0.0-0.2); Basophils % 0.4 % (0.0-0.8); Eosinophils # 0.2 10*3/uL (0.0-0.87); Eosinophils % 1.4 % (0.00-10.9); Hemoglobin 8.3 GM/DL (12.0-16.0); Immature Granulocytes % 1.2 %; Immature Granulocytes Absolute 0.14 #; Lymphocytes # 2.1 10*3/uL (1.4-4.0); Lymphocytes % 17.1 % (21.3-54.2); Mean Corpuscular HGB Conc 31.9 GM/DL (32-36); Mean Corpuscular Volume 91.5 FL (87-102); Monocytes % 6.8 % (1.7-12.7); Neutrophils % 73.1 % (38.7-73.9); Platelet Count 522 T/CUMM (130-400); Red Blood Count 2.84 MC/CUMM (3.8-5.5); Red Cell Distribution Width 16.5 % (9.3-17.3); White Blood Count 12.2 T/CUMM (4-12)
[2021-03-23 06:49] LABS: Calcium 7.9 MG/DL (8.5-10.1); Osmolality,Calculated 290.4 MOS/KG (273-304); Potassium 3.5 MMOL/L (3.5-5.1)
[2021-03-23] MEDS: METOPROLOL SUCCINATE XL 25 MG TABLET PO SCH ×2 (09:13→21:38)
[2021-03-23] MEDS: SPIRONOLACTONE 25 MG TABLET PO SCH (09:13)
[2021-03-23] MEDS: CHOLECALCIFEROL 5,000 UNIT TABLET PO SCH (09:13)
[2021-03-23] MEDS: INSULIN LISPRO 100 UNIT/ML SUBCUT SCH ×4 (09:13→21:39)
[2021-03-23] MEDS: PANTOPRAZOLE 40 MG TABLET PO SCH (09:14)
[2021-03-23] MEDS: MEROPENEM 500 MG in SODIUM CHLORIDE 0.9% 100 ML IV SCH ×2 (09:14→21:40)
[2021-03-23] MEDS: levETIRAcetam 500 MG TABLET PO SCH ×2 (09:14→21:39)
[2021-03-23] MEDS: ASPIRIN EC 81 MG TABLET PO SCH (09:14)
[2021-03-23] MEDS: FERROUS SULFATE 325 MG TABLET PO SCH (09:14)
[2021-03-23] MEDS: CARBIDOPA PO SCH ×3 (09:36→21:40)
[2021-03-23] MEDS: [UNRECOGNIZED DRUG - OTHER] PO SCH ×3 (09:36→21:40)
[2021-03-23] MEDS: LEVODOPA PO SCH ×3 (09:36→21:40)
[2021-03-23] MEDS: ESCITALOPRAM 10 MG TABLET PO SCH (21:38)
[2021-03-23] MEDS: ENOXAPARIN 30 MG/0.3 ML SYRINGE SUBCUT SCH (21:39)
[2021-03-23] MEDS: ROSUVASTATIN 20 MG TABLET PO SCH (21:39)
[2021-03-23] MEDS: DONEPEZIL 10 MG TABLET PO SCH (21:39)
[2021-03-24 05:28] LABS: Basophils # 0.1 10*3/uL (0.0-0.2); Basophils % 0.5 % (0.0-0.8); Eosinophils # 0.1 10*3/uL (0.0-0.87); Eosinophils % 1.1 % (0.00-10.9); Hematocrit 25.8 VOL% (35.7-47.0); Hemoglobin 8.3 GM/DL (12.0-16.0); Immature Granulocytes % 1.3 %; Immature Granulocytes Absolute 0.15 #; Lymphocytes % 17.7 % (21.3-54.2); Mean Corpuscular HGB Conc 32.2 GM/DL (32-36); Mean Corpuscular Volume 89.9 FL (87-102); Monocytes % 6.9 % (1.7-12.7); Neutrophils % 72.5 % (38.7-73.9); Platelet Count 554 T/CUMM (130-400); Red Blood Count 2.87 MC/CUMM (3.8-5.5); Red Cell Distribution Width 16.4 % (9.3-17.3); White Blood Count 11.6 T/CUMM (4-12)
[2021-03-24 05:47] LABS: Calcium 7.9 MG/DL (8.5-10.1); Osmolality,Calculated 282.8 MOS/KG (273-304); Potassium 3.4 MMOL/L (3.5-5.1)
[2021-03-24] MEDS: POTASSIUM BICARB EFFERVESCENT 20 MEQ TAB.EFF PER TUBE PRN (09:44)
[2021-03-24] MEDS: PANTOPRAZOLE 40 MG TABLET PO SCH (09:44)
[2021-03-24] MEDS: FERROUS SULFATE 325 MG TABLET PO SCH (09:44)
[2021-03-24] MEDS: ASPIRIN EC 81 MG TABLET PO SCH (09:44)
[2021-03-24] MEDS: levETIRAcetam 500 MG TABLET PO SCH ×2 (09:44→21:20)
[2021-03-24] MEDS: METOPROLOL SUCCINATE XL 25 MG TABLET PO SCH ×2 (09:44→21:20)
[2021-03-24] MEDS: CHOLECALCIFEROL 5,000 UNIT TABLET PO SCH (09:44)
[2021-03-24] MEDS: SPIRONOLACTONE 25 MG TABLET PO SCH (09:45)
[2021-03-24] MEDS: MEROPENEM 500 MG in SODIUM CHLORIDE 0.9% 100 ML IV SCH ×2 (09:45→21:22)
[2021-03-24] MEDS: INSULIN LISPRO 100 UNIT/ML SUBCUT SCH ×4 (09:45→21:22)
[2021-03-24] MEDS: CARBIDOPA PO SCH ×3 (09:46→21:25)
[2021-03-24] MEDS: [UNRECOGNIZED DRUG - OTHER] PO SCH ×3 (09:46→21:25)
[2021-03-24] MEDS: LEVODOPA PO SCH ×3 (09:46→21:25)
[2021-03-24] MEDS ORDERED: POTASSIUM CHLORIDE 20 MEQ TABLET PO ONE (15:00)
[2021-03-24] MEDS: ESCITALOPRAM 10 MG TABLET PO SCH (21:20)
[2021-03-24] MEDS: DONEPEZIL 10 MG TABLET PO SCH (21:20)
[2021-03-24] MEDS: ROSUVASTATIN 20 MG TABLET PO SCH (21:20)
[2021-03-24] MEDS: ENOXAPARIN 30 MG/0.3 ML SYRINGE SUBCUT SCH (21:22)
[2021-03-25 06:52] LABS: Basophils # 0.1 10*3/uL (0.0-0.2); Basophils % 0.8 % (0.0-0.8); Eosinophils # 0.2 10*3/uL (0.0-0.87); Eosinophils % 1.7 % (0.00-10.9); Hematocrit 26.4 VOL% (35.7-47.0); Hemoglobin 8.6 GM/DL (12.0-16.0); Immature Granulocytes Absolute 0.09 #; Lymphocytes # 2.1 10*3/uL (1.4-4.0); Lymphocytes % 22.3 % (21.3-54.2); Mean Corpuscular HGB Conc 32.6 GM/DL (32-36); Mean Corpuscular Volume 90.4 FL (87-102); Mean Platelet Volume 11.1 FL (9.6-12.0); Monocytes % 6.6 % (1.7-12.7); Neutrophils % 67.6 % (38.7-73.9); Platelet Count 578 T/CUMM (130-400); Red Blood Count 2.92 MC/CUMM (3.8-5.5); Red Cell Distribution Width 16.3 % (9.3-17.3); White Blood Count 9.2 T/CUMM (4-12)
[2021-03-25 07:20] LABS: Calcium 8.1 MG/DL (8.5-10.1); Osmolality,Calculated 287.7 MOS/KG (273-304); Potassium 3.8 MMOL/L (3.5-5.1)
[2021-03-25] MEDS: CARBIDOPA PO SCH ×3 (09:50→22:20)
[2021-03-25] MEDS: LEVODOPA PO SCH ×3 (09:50→22:20)
[2021-03-25] MEDS: [UNRECOGNIZED DRUG - OTHER] PO SCH ×3 (09:50→22:20)
[2021-03-25] MEDS: SPIRONOLACTONE 25 MG TABLET PO SCH (09:50)
[2021-03-25] MEDS: METOPROLOL SUCCINATE XL 25 MG TABLET PO SCH ×2 (09:51→22:18)
[2021-03-25] MEDS: PANTOPRAZOLE 40 MG TABLET PO SCH (09:52)
[2021-03-25] MEDS: ASPIRIN EC 81 MG TABLET PO SCH (09:52)
[2021-03-25] MEDS: INSULIN LISPRO 100 UNIT/ML SUBCUT SCH ×4 (09:52→22:25)
[2021-03-25] MEDS: levETIRAcetam 500 MG TABLET PO SCH ×2 (09:52→22:19)
[2021-03-25] MEDS: FERROUS SULFATE 325 MG TABLET PO SCH (09:52)
[2021-03-25] MEDS: CHOLECALCIFEROL 5,000 UNIT TABLET PO SCH (09:53)
[2021-03-25] MEDS: MEROPENEM 500 MG in SODIUM CHLORIDE 0.9% 100 ML IV SCH ×2 (09:53→22:17)
[2021-03-25] MEDS ORDERED: MAGNESIUM SULF RIDER 2 GM/50 ML PREMIX IV ONE (12:38)
[2021-03-25] MEDS: ROSUVASTATIN 20 MG TABLET PO SCH (22:18)
[2021-03-25] MEDS: DONEPEZIL 10 MG TABLET PO SCH (22:19)
[2021-03-25] MEDS: ESCITALOPRAM 10 MG TABLET PO SCH (22:20)
[2021-03-25] MEDS: ENOXAPARIN 30 MG/0.3 ML SYRINGE SUBCUT SCH (22:21)
[2021-03-26 05:43] LABS: Basophils # 0.1 10*3/uL (0.0-0.2); Basophils % 0.7 % (0.0-0.8); Eosinophils # 0.2 10*3/uL (0.0-0.87); Eosinophils % 2.5 % (0.00-10.9); Hematocrit 25.8 VOL% (35.7-47.0); Hemoglobin 8.3 GM/DL (12.0-16.0); Immature Granulocytes % 0.6 %; Immature Granulocytes Absolute 0.06 #; Lymphocytes # 2.4 10*3/uL (1.4-4.0); Lymphocytes % 24.3 % (21.3-54.2); Mean Corpuscular HGB Conc 32.2 GM/DL (32-36); Mean Corpuscular Volume 90.2 FL (87-102); Mean Platelet Volume 11.1 FL (9.6-12.0); Monocytes % 7.3 % (1.7-12.7); Neutrophils % 64.6 % (38.7-73.9); Platelet Count 578 T/CUMM (130-400); Red Blood Count 2.86 MC/CUMM (3.8-5.5); White Blood Count 9.7 T/CUMM (4-12)
[2021-03-26 06:02] LABS: Calcium 8.4 MG/DL (8.5-10.1); Osmolality,Calculated 286.5 MOS/KG (273-304); Potassium 3.5 MMOL/L (3.5-5.1)
[2021-03-26] MEDS: cefTRIAXone 1,000 MG in SODIUM CHLORIDE 0.9% 100 ML IV ONE ×2 (06:31→10:42)
[2021-03-26] MEDS ORDERED: LACTATED RINGERS 1,000 ML IV SCH (10:00)
[2021-03-26] MEDS: SPIRONOLACTONE 25 MG TABLET PO SCH (10:42)
[2021-03-26] MEDS: INSULIN LISPRO 100 UNIT/ML SUBCUT SCH ×4 (10:42→21:57)
[2021-03-26] MEDS: [UNRECOGNIZED DRUG - OTHER] PO SCH ×3 (10:43→22:16)
[2021-03-26] MEDS: MEROPENEM 500 MG in SODIUM CHLORIDE 0.9% 100 ML IV SCH ×2 (10:43→21:55)
[2021-03-26] MEDS: LEVODOPA PO SCH ×3 (10:43→22:16)
[2021-03-26] MEDS: ASPIRIN EC 81 MG TABLET PO SCH (10:43)
[2021-03-26] MEDS: CARBIDOPA PO SCH ×3 (10:43→22:16)
[2021-03-26] MEDS: FERROUS SULFATE 325 MG TABLET PO SCH (10:43)
[2021-03-26] MEDS: METOPROLOL SUCCINATE XL 25 MG TABLET PO SCH ×2 (10:44→21:56)
[2021-03-26] MEDS: PANTOPRAZOLE 40 MG TABLET PO SCH (10:44)
[2021-03-26] MEDS: CHOLECALCIFEROL 5,000 UNIT TABLET PO SCH (10:44)
[2021-03-26] MEDS ORDERED: KETAMINE 500 MG/10 ML VIAL ONE (11:12)
[2021-03-26] MEDS ORDERED: ETOMIDATE 40 MG/20 ML VIAL IV ONE (11:33)
[2021-03-26] MEDS ORDERED: LIDOCAINE 2% 5 ML VIAL ONE (11:33)
[2021-03-26] MEDS ORDERED: propofoL 200 MG/20 ML VIAL IV ONE (11:33)
[2021-03-26] MEDS: levETIRAcetam 500 MG TABLET PO SCH ×2 (13:15→21:56)
[2021-03-26] MEDS: ENOXAPARIN 30 MG/0.3 ML SYRINGE SUBCUT SCH (21:55)
[2021-03-26] MEDS: ESCITALOPRAM 10 MG TABLET PO SCH (21:56)
[2021-03-26] MEDS: DONEPEZIL 10 MG TABLET PO SCH (21:56)
[2021-03-26] MEDS: ROSUVASTATIN 20 MG TABLET PO SCH (21:57)
[2021-03-27 06:16] LABS: Basophils # 0.1 10*3/uL (0.0-0.2); Basophils % 0.8 % (0.0-0.8); Eosinophils # 0.2 10*3/uL (0.0-0.87); Eosinophils % 2.2 % (0.00-10.9); Hematocrit 28.1 VOL% (35.7-47.0); Immature Granulocytes % 0.4 %; Immature Granulocytes Absolute 0.03 #; Lymphocytes # 1.8 10*3/uL (1.4-4.0); Lymphocytes % 22.2 % (21.3-54.2); Mean Corpuscular Volume 90.6 FL (87-102); Mean Platelet Volume 11.1 FL (9.6-12.0); Monocytes % 7.1 % (1.7-12.7); Neutrophils % 67.3 % (38.7-73.9); Platelet Count 628 T/CUMM (130-400); Red Cell Distribution Width 15.9 % (9.3-17.3); White Blood Count 7.9 T/CUMM (4-12)
[2021-03-27 06:30] LABS: Calcium 8.4 MG/DL (8.5-10.1); Osmolality,Calculated 284.8 MOS/KG (273-304); Potassium 3.5 MMOL/L (3.5-5.1)
[2021-03-27] MEDS: INSULIN LISPRO 100 UNIT/ML SUBCUT SCH ×4 (08:43→21:53)
[2021-03-27] MEDS: PANTOPRAZOLE 40 MG TABLET PO SCH (08:44)
[2021-03-27] MEDS: METOPROLOL SUCCINATE XL 25 MG TABLET PO SCH ×2 (08:44→21:52)
[2021-03-27] MEDS: MEROPENEM 500 MG in SODIUM CHLORIDE 0.9% 100 ML IV SCH ×2 (08:44→21:52)
[2021-03-27] MEDS: levETIRAcetam 500 MG TABLET PO SCH ×2 (08:45→21:52)
[2021-03-27] MEDS: SPIRONOLACTONE 25 MG TABLET PO SCH (08:45)
[2021-03-27] MEDS: CHOLECALCIFEROL 5,000 UNIT TABLET PO SCH (08:45)
[2021-03-27] MEDS: ASPIRIN EC 81 MG TABLET PO SCH (08:45)
[2021-03-27] MEDS: FERROUS SULFATE 325 MG TABLET PO SCH (08:45)
[2021-03-27] MEDS: LEVODOPA PO SCH ×3 (11:41→21:53)
[2021-03-27] MEDS: CARBIDOPA PO SCH ×3 (11:41→21:53)
[2021-03-27] MEDS: [UNRECOGNIZED DRUG - OTHER] PO SCH ×3 (11:41→21:53)
[2021-03-27] MEDS: TICAGRELOR 90 MG TABLET PO SCH ×2 (17:57→21:52)
[2021-03-27] MEDS: ENOXAPARIN 30 MG/0.3 ML SYRINGE SUBCUT SCH (21:51)
[2021-03-27] MEDS: DONEPEZIL 10 MG TABLET PO SCH (21:52)
[2021-03-27] MEDS: ESCITALOPRAM 10 MG TABLET PO SCH (21:52)
[2021-03-27] MEDS: ROSUVASTATIN 20 MG TABLET PO SCH (21:52)
[2021-03-28] MEDS: INSULIN LISPRO 100 UNIT/ML SUBCUT SCH ×4 (09:58→21:33)
[2021-03-28] MEDS: MEROPENEM 500 MG in SODIUM CHLORIDE 0.9% 100 ML IV SCH ×2 (11:00→20:25)
[2021-03-28] MEDS: FERROUS SULFATE 325 MG TABLET PO SCH (11:07)
[2021-03-28] MEDS: levETIRAcetam 500 MG TABLET PO SCH ×2 (11:07→20:25)
[2021-03-28] MEDS: TICAGRELOR 90 MG TABLET PO SCH ×2 (11:07→20:26)
[2021-03-28] MEDS: SPIRONOLACTONE 25 MG TABLET PO SCH (11:07)
[2021-03-28] MEDS: PANTOPRAZOLE 40 MG TABLET PO SCH (11:07)
[2021-03-28] MEDS: ASPIRIN EC 81 MG TABLET PO SCH (11:07)
[2021-03-28] MEDS: CHOLECALCIFEROL 5,000 UNIT TABLET PO SCH (11:08)
[2021-03-28] MEDS: METOPROLOL SUCCINATE XL 25 MG TABLET PO SCH ×2 (11:08→20:25)
[2021-03-28] MEDS: CARBIDOPA PO SCH ×3 (12:07→20:26)
[2021-03-28] MEDS: [UNRECOGNIZED DRUG - OTHER] PO SCH ×3 (12:07→20:26)
[2021-03-28] MEDS: LEVODOPA PO SCH ×3 (12:07→20:26)
[2021-03-28] MEDS: DONEPEZIL 10 MG TABLET PO SCH (20:25)
[2021-03-28] MEDS: ENOXAPARIN 30 MG/0.3 ML SYRINGE SUBCUT SCH (20:25)
[2021-03-28] MEDS: ESCITALOPRAM 10 MG TABLET PO SCH (20:25)
[2021-03-28] MEDS: ROSUVASTATIN 20 MG TABLET PO SCH (20:26)
[2021-03-29] MEDS: METOPROLOL SUCCINATE XL 25 MG TABLET PO SCH (09:02)
[2021-03-29] MEDS: CHOLECALCIFEROL 5,000 UNIT TABLET PO SCH (09:02)
[2021-03-29] MEDS: TICAGRELOR 90 MG TABLET PO SCH (09:02)
[2021-03-29] MEDS: levETIRAcetam 500 MG TABLET PO SCH (09:02)
[2021-03-29] MEDS: SPIRONOLACTONE 25 MG TABLET PO SCH (09:02)
[2021-03-29] MEDS: PANTOPRAZOLE 40 MG TABLET PO SCH (09:02)
[2021-03-29] MEDS: FERROUS SULFATE 325 MG TABLET PO SCH (09:02)
[2021-03-29] MEDS: INSULIN LISPRO 100 UNIT/ML SUBCUT SCH ×2 (09:02→12:20)
[2021-03-29] MEDS: ASPIRIN EC 81 MG TABLET PO SCH (09:02)
[2021-03-29] MEDS: [UNRECOGNIZED DRUG - OTHER] PO SCH ×2 (10:28→15:20)
[2021-03-29] MEDS: CARBIDOPA PO SCH ×2 (10:28→15:20)
[2021-03-29] MEDS: LEVODOPA PO SCH ×2 (10:28→15:20)
[2021-03-29 12:24] VITALS: BP 125/45
[2021-03-31 06:41] LABS: Stone Analysis Interpretation 100% Uric acid
== END 2021-03-29 16:18 | disposition home health service (06) | DRG 853 ==
LOC: EDUNIT# → EDBD → N.ED 12:54 → N.EDINP 16:55 → SUATTDRO 16:55 → N.ICU 17:20 → N.5E 03-19 18:31
PROVIDERS: ADMIT Family Medicine; ATTEND Hospitalist

== ENCOUNTER 2021-07-12 18:35 | Inpatient (IN) ==
[2021-07-12] MEDS ORDERED: SODIUM CHLORIDE 0.9% 1,000 ML IV STA (21:58)
[2021-07-12 22:06] LABS: Basophils # 0.1 10*3/uL (0.0-0.2); Basophils % 0.5 % (0.0-0.8); Eosinophils # 0.1 10*3/uL (0.0-0.87); Eosinophils % 0.6 % (0.00-10.9); Hematocrit 39.5 VOL% (35.7-47.0); Hemoglobin 12.5 GM/DL (12.0-16.0); Immature Granulocytes % 0.3 %; Immature Granulocytes Absolute 0.03 #; Lymphocytes % 21.3 % (21.3-54.2); Mean Corpuscular HGB Conc 31.6 GM/DL (32-36); Mean Corpuscular Volume 95.4 FL (87-102); Mean Platelet Volume 11.4 FL (9.6-12.0); Monocytes # 0.4 10*3/uL (0.11-0.8); Monocytes % 4.5 % (1.7-12.7); Neutrophils % 72.8 % (38.7-73.9); Platelet Count 326 T/CUMM (130-400); Red Blood Count 4.14 MC/CUMM (3.8-5.5); Red Cell Distribution Width 15.9 % (9.3-17.3); White Blood Count 9.4 T/CUMM (4-12)
[2021-07-12 22:30] LABS: Alanine Aminotransferase 11 U/L (13-56); Albumin 2.9 G/DL (3.4-5.0); Alkaline Phosphatase 89 U/L (45-117); Aspartate Amino Transferase 23 U/L (0-37); Bilirubin,Total < 0.39 MG/DL (0.20-1.00); Blood Urea Nitrogen 35 MG/DL (7-18); Carbon Dioxide 23 MMOL/L (21-32); Chloride 104 MMOL/L (98-107); Glucose 228 MG/DL (74-106); Potassium 4.8 MMOL/L (3.5-5.1); Sodium 136 MMOL/L (136-145); Total Protein 7.8 G/DL (6.4-8.2)
[2021-07-12] MEDS ORDERED: ONDANSETRON 4 MG/2 ML VIAL IV STA (23:29)
[2021-07-13 00:45] LABS: Bacteria,Urine Many /HPF (Few); Mucus,Urine Few /LPF (Occasional); RBC,Urine 169 /HPF (0-4); Squamous Epithelial Cell,Urine Many /HPF (0-10)
[2021-07-13 00:46] LABS: Bilirubin,Urine Negative (Negative); Blood, Urine Large mg/dL (Negative); Glucose,Urine (UA) 100 mg/dL (Negative); Ketones,Urine Negative (Negative); Nitrite,Urine Negative (Negative); Protein,Urine 30 mg/dL (Negative); Urine Appearance Turbid (Clear); Urine Color Yellow (Yellow); Urine Specific Gravity >= 1.030 (1.001-1.035)
[2021-07-13 00:47] LABS: Urine Urobilinogen 0.2 eU/dL (<2.0)
[2021-07-13] MEDS ORDERED: cefTRIAXone 1,000 MG in SODIUM CHLORIDE 0.9% 100 ML IV STA (01:01)
[2021-07-13 01:27] LABS: Barbiturates Screen,Urine Negative (Negative); Benzodiazepines Screen,Urine Negative (Negative); Cannabinoid Screen,Urine Negative (Negative); Opiate Screen,Urine Negative (Negative); Phencyclidine Screen,Urine Negative (Negative)
[2021-07-13] MEDS ORDERED: ACETAMINOPHEN 325 MG TABLET PO PRN (03:06)
[2021-07-13] MEDS ORDERED: GLUCAGON 1 MG VIAL IM PRN (03:06)
[2021-07-13] MEDS ORDERED: ONDANSETRON 4 MG/2 ML VIAL IV PRN (03:06)
[2021-07-13] MEDS ORDERED: DEXTROSE 10% 250 ML BAG IV PRN (03:08)
[2021-07-13] MEDS: SODIUM CHLORIDE 0.9% 1,000 ML IV SCH ×2 (03:58→16:45)
[2021-07-13] MEDS: INSULIN REGULAR 100 UNIT/ML SUBCUT SCH ×3 (07:33→18:54)
[2021-07-13] MEDS: levETIRAcetam 500 MG TABLET PO SCH ×2 (09:13→20:46)
[2021-07-13] MEDS: ASPIRIN EC 81 MG TABLET PO SCH (09:14)
[2021-07-13] MEDS: TICAGRELOR 90 MG TABLET PO SCH ×2 (09:14→21:05)
[2021-07-13] MEDS: PANTOPRAZOLE 40 MG TABLET PO SCH (09:14)
[2021-07-13] MEDS: DOCUSATE SODIUM 100 MG CAPSULE PO SCH ×2 (09:14→20:47)
[2021-07-13] MEDS: METOPROLOL SUCCINATE XL 25 MG TABLET PO SCH ×2 (09:14→20:47)
[2021-07-13] MEDS: LEVODOPA PO SCH ×2 (14:12→20:52)
[2021-07-13] MEDS: CARBIDOPA PO SCH ×2 (14:12→20:52)
[2021-07-13] MEDS: cefTRIAXone 1,000 MG in SODIUM CHLORIDE 0.9% 100 ML IV SCH (20:46)
[2021-07-13] MEDS ORDERED: SODIUM CHLORIDE 0.9% 500 ML IV ONE (21:00)
[2021-07-14] MEDS: SODIUM CHLORIDE 0.9% 1,000 ML IV SCH ×5 (00:43→17:40)
[2021-07-14] MEDS: INSULIN REGULAR 100 UNIT/ML SUBCUT SCH ×6 (00:43→23:58)
[2021-07-14 05:57] LABS: Basophils # 0.1 10*3/uL (0.0-0.2); Basophils % 0.9 % (0.0-0.8); Eosinophils # 0.2 10*3/uL (0.0-0.87); Eosinophils % 3.3 % (0.00-10.9); Hematocrit 28.4 VOL% (35.7-47.0); Hemoglobin 8.9 GM/DL (12.0-16.0); Immature Granulocytes % 0.3 %; Immature Granulocytes Absolute 0.02 #; Lymphocytes # 2.9 10*3/uL (1.4-4.0); Mean Corpuscular HGB Conc 31.3 GM/DL (32-36); Mean Corpuscular Volume 98.6 FL (87-102); Mean Platelet Volume 11.4 FL (9.6-12.0); Monocytes # 0.5 10*3/uL (0.11-0.8); Monocytes % 7.7 % (1.7-12.7); Neutrophils % 45.8 % (38.7-73.9); Platelet Count 332 T/CUMM (130-400); Red Blood Count 2.88 MC/CUMM (3.8-5.5); Red Cell Distribution Width 15.8 % (9.3-17.3)
[2021-07-14 06:27] LABS: Alanine Aminotransferase 21 U/L (13-56); Albumin 2.4 G/DL (3.4-5.0); Alkaline Phosphatase 74 U/L (45-117); Aspartate Amino Transferase 16 U/L (0-37); Bilirubin,Total < 0.39 MG/DL (0.20-1.00); Blood Urea Nitrogen 40 MG/DL (7-18); Calcium 8.1 MG/DL (8.5-10.1); Carbon Dioxide 23 MMOL/L (21-32); Chloride 112 MMOL/L (98-107); Glucose 138 MG/DL (74-106); Osmolality,Calculated 294.1 MOS/KG (273-304); Potassium 3.8 MMOL/L (3.5-5.1); Sodium 142 MMOL/L (136-145); Total Protein 6.4 G/DL (6.4-8.2)
[2021-07-14] MEDS: levETIRAcetam 500 MG TABLET PO SCH ×2 (09:17→21:57)
[2021-07-14] MEDS: ASPIRIN EC 81 MG TABLET PO SCH (09:18)
[2021-07-14] MEDS: DOCUSATE SODIUM 100 MG CAPSULE PO SCH ×2 (09:18→21:57)
[2021-07-14] MEDS: PANTOPRAZOLE 40 MG TABLET PO SCH (09:18)
[2021-07-14] MEDS: TICAGRELOR 90 MG TABLET PO SCH ×2 (09:18→21:57)
[2021-07-14] MEDS: LEVODOPA PO SCH ×3 (09:34→20:59)
[2021-07-14] MEDS: CARBIDOPA PO SCH ×3 (09:34→20:59)
[2021-07-14] MEDS: METOPROLOL SUCCINATE XL 25 MG TABLET PO SCH ×2 (09:34→21:00)
[2021-07-14] MEDS: cefTRIAXone 1,000 MG in SODIUM CHLORIDE 0.9% 100 ML IV SCH (22:19)
[2021-07-15 06:09] LABS: Basophils # 0.1 10*3/uL (0.0-0.2); Basophils % 0.9 % (0.0-0.8); Eosinophils # 0.3 10*3/uL (0.0-0.87); Eosinophils % 3.4 % (0.00-10.9); Hematocrit 27.1 VOL% (35.7-47.0); Hemoglobin 8.4 GM/DL (12.0-16.0); Immature Granulocytes % 0.2 %; Immature Granulocytes Absolute 0.02 #; Lymphocytes # 3.6 10*3/uL (1.4-4.0); Lymphocytes % 40.9 % (21.3-54.2); Mean Corpuscular Volume 97.1 FL (87-102); Mean Platelet Volume 11.3 FL (9.6-12.0); Monocytes # 0.7 10*3/uL (0.11-0.8); Monocytes % 8.1 % (1.7-12.7); Neutrophils % 46.5 % (38.7-73.9); Platelet Count 320 T/CUMM (130-400); Red Blood Count 2.79 MC/CUMM (3.8-5.5); Red Cell Distribution Width 15.7 % (9.3-17.3); White Blood Count 8.8 T/CUMM (4-12)
[2021-07-15] MEDS: INSULIN REGULAR 100 UNIT/ML SUBCUT SCH ×3 (06:20→18:20)
[2021-07-15 06:35] LABS: Alanine Aminotransferase 25 U/L (13-56); Albumin 2.4 G/DL (3.4-5.0); Alkaline Phosphatase 82 U/L (45-117); Aspartate Amino Transferase 20 U/L (0-37); Bilirubin,Total < 0.39 MG/DL (0.20-1.00); Blood Urea Nitrogen 32 MG/DL (7-18); Calcium 8.3 MG/DL (8.5-10.1); Carbon Dioxide 21 MMOL/L (21-32); Chloride 114 MMOL/L (98-107); Glucose 81 MG/DL (74-106); Osmolality,Calculated 291.8 MOS/KG (273-304); Potassium 3.5 MMOL/L (3.5-5.1); Sodium 144 MMOL/L (136-145); Total Protein 6.1 G/DL (6.4-8.2)
[2021-07-15] MEDS: METOPROLOL SUCCINATE XL 25 MG TABLET PO SCH ×2 (09:20→22:33)
[2021-07-15] MEDS: ASPIRIN EC 81 MG TABLET PO SCH (09:20)
[2021-07-15] MEDS: DOCUSATE SODIUM 100 MG CAPSULE PO SCH ×2 (09:21→21:57)
[2021-07-15] MEDS: levETIRAcetam 500 MG TABLET PO SCH ×2 (09:21→21:57)
[2021-07-15] MEDS: CARBIDOPA/LEVODOPA 25-250 MG TABLET PO SCH ×3 (09:21→21:57)
[2021-07-15] MEDS: PANTOPRAZOLE 40 MG TABLET PO SCH (09:21)
[2021-07-15] MEDS: glipiZIDE 5 MG TABLET PO SCH (09:21)
[2021-07-15] MEDS: SODIUM CHLORIDE 0.9% 1,000 ML IV SCH ×2 (09:22→20:13)
[2021-07-15] MEDS: TICAGRELOR 90 MG TABLET PO SCH ×2 (09:22→21:57)
[2021-07-15] MEDS: SPIRONOLACTONE 25 MG TABLET PO SCH (09:22)
[2021-07-15] MEDS ORDERED: MENTHOL/ZINC OXIDE OINT 71 GM JAR TOP PRN (14:27)
[2021-07-15] MEDS: LEVODOPA PO SCH (20:14)
[2021-07-15] MEDS: CARBIDOPA PO SCH (20:14)
[2021-07-15] MEDS: cefTRIAXone 1,000 MG in SODIUM CHLORIDE 0.9% 100 ML IV SCH (21:56)
[2021-07-16] MEDS: INSULIN REGULAR 100 UNIT/ML SUBCUT SCH ×4 (00:13→19:13)
[2021-07-16 06:16] LABS: Basophils # 0.1 10*3/uL (0.0-0.2); Basophils % 0.9 % (0.0-0.8); Eosinophils # 0.3 10*3/uL (0.0-0.87); Hematocrit 32.1 VOL% (35.7-47.0); Hemoglobin 10.3 GM/DL (12.0-16.0); Immature Granulocytes % 0.4 %; Immature Granulocytes Absolute 0.03 #; Lymphocytes # 2.5 10*3/uL (1.4-4.0); Lymphocytes % 29.2 % (21.3-54.2); Mean Corpuscular HGB Conc 32.1 GM/DL (32-36); Mean Corpuscular Volume 96.1 FL (87-102); Mean Platelet Volume 11.3 FL (9.6-12.0); Monocytes # 0.5 10*3/uL (0.11-0.8); Monocytes % 5.3 % (1.7-12.7); Neutrophils % 61.2 % (38.7-73.9); Platelet Count 375 T/CUMM (130-400); Red Blood Count 3.34 MC/CUMM (3.8-5.5); Red Cell Distribution Width 15.9 % (9.3-17.3); White Blood Count 8.5 T/CUMM (4-12)
[2021-07-16 06:39] LABS: Alanine Aminotransferase 9 U/L (13-56); Albumin 2.7 G/DL (3.4-5.0); Alkaline Phosphatase 85 U/L (45-117); Aspartate Amino Transferase 20 U/L (0-37); Bilirubin,Total < 0.39 MG/DL (0.20-1.00); Blood Urea Nitrogen 22 MG/DL (7-18); Calcium 8.8 MG/DL (8.5-10.1); Carbon Dioxide 25 MMOL/L (21-32); Chloride 109 MMOL/L (98-107); Glucose 182 MG/DL (74-106); Osmolality,Calculated 290.1 MOS/KG (273-304); Potassium 3.5 MMOL/L (3.5-5.1); Sodium 142 MMOL/L (136-145); Total Protein 7.3 G/DL (6.4-8.2)
[2021-07-16] MEDS: SODIUM CHLORIDE 0.9% 1,000 ML IV SCH ×4 (07:14→20:29)
[2021-07-16] MEDS: METOPROLOL SUCCINATE XL 25 MG TABLET PO SCH ×2 (08:41→20:33)
[2021-07-16] MEDS: DOCUSATE SODIUM 100 MG CAPSULE PO SCH ×2 (08:41→20:45)
[2021-07-16] MEDS: PANTOPRAZOLE 40 MG TABLET PO SCH (08:41)
[2021-07-16] MEDS: glipiZIDE 5 MG TABLET PO SCH (08:41)
[2021-07-16] MEDS: TICAGRELOR 90 MG TABLET PO SCH ×2 (08:41→20:44)
[2021-07-16] MEDS: levETIRAcetam 500 MG TABLET PO SCH ×2 (08:42→20:45)
[2021-07-16] MEDS: SPIRONOLACTONE 25 MG TABLET PO SCH (08:42)
[2021-07-16] MEDS: ASPIRIN EC 81 MG TABLET PO SCH (08:42)
[2021-07-16] MEDS: CARBIDOPA/LEVODOPA 25-250 MG TABLET PO SCH ×3 (08:44→20:44)
[2021-07-16] MEDS: cefTRIAXone 1,000 MG in SODIUM CHLORIDE 0.9% 100 ML IV SCH (20:44)
[2021-07-17] MEDS: INSULIN REGULAR 100 UNIT/ML SUBCUT SCH ×4 (00:24→18:42)
[2021-07-17] MEDS: SODIUM CHLORIDE 0.9% 1,000 ML IV SCH ×2 (03:20→12:37)
[2021-07-17 05:47] LABS: Basophils # 0.1 10*3/uL (0.0-0.2); Basophils % 0.7 % (0.0-0.8); Eosinophils # 0.3 10*3/uL (0.0-0.87); Eosinophils % 2.8 % (0.00-10.9); Lymphocytes # 4.5 10*3/uL (1.4-4.0); Lymphocytes % 44.6 % (21.3-54.2); Mean Corpuscular HGB Conc 29.4 GM/DL (32-36); Mean Corpuscular Volume 104.6 FL (87-102); Mean Platelet Volume 10.9 FL (9.6-12.0); Monocytes # 0.8 10*3/uL (0.11-0.8); Monocytes % 7.4 % (1.7-12.7); Neutrophils % 43.5 % (38.7-73.9); Platelet Count 304 T/CUMM (130-400); Red Blood Count 3.06 MC/CUMM (3.8-5.5); Red Cell Distribution Width 16.6 % (9.3-17.3); White Blood Count 10.2 T/CUMM (4-12)
[2021-07-17 05:50] LABS: Hemoglobin 9.4 GM/DL (12.0-16.0)
[2021-07-17 05:51] LABS: Calcium 8.3 MG/DL (8.5-10.1); Osmolality,Calculated 280.4 MOS/KG (273-304); Potassium 3.6 MMOL/L (3.5-5.1)
[2021-07-17] MEDS: METOPROLOL SUCCINATE XL 25 MG TABLET PO SCH ×2 (10:02→21:03)
[2021-07-17] MEDS: levETIRAcetam 500 MG TABLET PO SCH ×2 (10:02→21:03)
[2021-07-17] MEDS: TICAGRELOR 90 MG TABLET PO SCH ×2 (10:02→21:03)
[2021-07-17] MEDS: ASPIRIN EC 81 MG TABLET PO SCH (10:03)
[2021-07-17] MEDS: glipiZIDE 5 MG TABLET PO SCH (10:03)
[2021-07-17] MEDS: PANTOPRAZOLE 40 MG TABLET PO SCH (10:03)
[2021-07-17] MEDS: CARBIDOPA/LEVODOPA 25-250 MG TABLET PO SCH ×3 (10:03→21:03)
[2021-07-17] MEDS: SPIRONOLACTONE 25 MG TABLET PO SCH (10:03)
[2021-07-17] MEDS: DOCUSATE SODIUM 100 MG CAPSULE PO SCH ×2 (10:06→21:03)
[2021-07-17] MEDS: cefTRIAXone 1,000 MG in SODIUM CHLORIDE 0.9% 100 ML IV SCH (21:02)
[2021-07-18] MEDS: INSULIN REGULAR 100 UNIT/ML SUBCUT SCH (00:43)
[2021-07-18 05:32] LABS: Calcium 8.1 MG/DL (8.5-10.1); Potassium 3.6 MMOL/L (3.5-5.1)
[2021-07-18] MEDS: TICAGRELOR 90 MG TABLET PO SCH (08:37)
[2021-07-18] MEDS: levETIRAcetam 500 MG TABLET PO SCH (08:37)
[2021-07-18] MEDS: SPIRONOLACTONE 25 MG TABLET PO SCH (08:37)
[2021-07-18] MEDS: METOPROLOL SUCCINATE XL 25 MG TABLET PO SCH (08:37)
[2021-07-18] MEDS: DOCUSATE SODIUM 100 MG CAPSULE PO SCH (08:38)
[2021-07-18] MEDS: CARBIDOPA/LEVODOPA 25-250 MG TABLET PO SCH (08:38)
[2021-07-18] MEDS: PANTOPRAZOLE 40 MG TABLET PO SCH (08:38)
[2021-07-18] MEDS: glipiZIDE 5 MG TABLET PO SCH (08:38)
[2021-07-18] MEDS: ASPIRIN EC 81 MG TABLET PO SCH (08:38)
[2021-07-18 12:36] VITALS: BP 143/59
== END 2021-07-18 13:45 | disposition home or self-care (01) | DRG 690 ==
LOC: N.ED 18:35 → N.EDINP 07-13 03:39 → N.3E 07-13 04:35
PROVIDERS: ADMIT Family Medicine; ATTEND Family Medicine

== ENCOUNTER 2022-02-15 14:50 | Inpatient (IN) ==
[2022-02-15] MEDS ORDERED: SODIUM CHLORIDE 0.9% 1,000 ML IV STA ×2 (15:10→16:53)
[2022-02-15 15:19] LABS: Basophils % 0.3 % (0.0-0.8); Hematocrit 35.9 VOL% (35.7-47.0); Hemoglobin 11.7 GM/DL (12.0-16.0); Immature Granulocytes % 0.4 %; Immature Granulocytes Absolute 0.05 #; Lymphocytes # 1.2 10*3/uL (1.4-4.0); Lymphocytes % 8.7 % (21.3-54.2); Mean Corpuscular HGB Conc 32.6 GM/DL (32-36); Mean Platelet Volume 10.6 FL (9.6-12.0); Monocytes # 0.4 10*3/uL (0.11-0.8); Monocytes % 2.6 % (1.7-12.7); Platelet Count 388 T/CUMM (130-400); Red Cell Distribution Width 13.1 % (9.3-17.3)
[2022-02-15 15:25] LABS: PT Patient Result 11.2 SECS (10.1-12.1)
[2022-02-15 15:34] LABS: Albumin 3.2 G/DL (3.4-5.0); Bilirubin,Total 0.4 MG/DL (0.20-1.00); Calcium 8.9 MG/DL (8.5-10.1); Osmolality,Calculated 284.4 MOS/KG (273-304); Potassium 4.5 MMOL/L (3.5-5.1); Total Protein 7.3 G/DL (6.4-8.2)
[2022-02-15 16:46] LABS: Bacteria,Urine Occasional /HPF (Few); RBC,Urine 16 /HPF (0-4)
[2022-02-15 16:47] LABS: Barbiturates Screen,Urine Negative (Negative); Benzodiazepines Screen,Urine Negative (Negative); Cannabinoid Screen,Urine Negative (Negative); Opiate Screen,Urine Negative (Negative); Phencyclidine Screen,Urine Negative (Negative)
[2022-02-15 16:50] LABS: Urine Appearance Cloudy (Clear); Urine Color Light Yellow (Yellow)
[2022-02-15 16:51] LABS: Bilirubin,Urine Negative (Negative); Blood, Urine Large mg/dL (Negative); Glucose,Urine (UA) Negative (Negative); Ketones,Urine Negative (Negative); Nitrite,Urine Positive (Negative); Protein,Urine 100 mg/dL (Negative); Urine Specific Gravity > 1.030 (1.001-1.035); Urine Urobilinogen 0.2 eU/dL (<2.0)
[2022-02-15] MEDS ORDERED: VANCOMYCIN INJ 1,000 MG in SODIUM CHLORIDE 0.9% 250 ML IV STA (16:53)
[2022-02-15] MEDS ORDERED: PIPERACILLIN/TAZOBACTAM 3,375 MG in SODIUM CHLORIDE 0.9% 100 ML IV STA (16:53)
[2022-02-15] MEDS ORDERED: ACETAMINOPHEN 325 MG TABLET PO PRN (17:28)
[2022-02-15] MEDS ORDERED: DEXTROSE 10% 250 ML BAG IV PRN (17:28)
[2022-02-15] MEDS ORDERED: GLUCAGON 1 MG VIAL IM PRN (17:28)
[2022-02-15] MEDS ORDERED: ONDANSETRON 4 MG/2 ML VIAL IV PRN (17:28)
[2022-02-15] MEDS: ALBUTEROL/IPRATROPIUM 3 ML NEB RESP TX SCH (18:45)
[2022-02-15] MEDS ORDERED: DONEPEZIL 10 MG TABLET PO SCH (21:00)
[2022-02-15] MEDS: AZITHROMYCIN INJ 500 MG in SODIUM CHLORIDE 0.9% 250 ML IV SCH (21:15)
[2022-02-15] MEDS: SODIUM CHLORIDE 0.9% 1,000 ML IV SCH (21:15)
[2022-02-15] MEDS: HEPARIN 5,000 UNIT/1 ML VIAL SUBCUT SCH (21:16)
[2022-02-15] MEDS: ESCITALOPRAM 10 MG TABLET PO SCH (21:16)
[2022-02-15] MEDS: MAGNESIUM CHLORIDE 64 MG TABLET PO SCH (21:16)
[2022-02-15] MEDS: TICAGRELOR 90 MG TABLET PO SCH (21:16)
[2022-02-15] MEDS: INSULIN LISPRO 100 UNIT/ML SUBCUT SCH (21:27)
[2022-02-15] MEDS: guaiFENesin/DM ER 600-30 MG TABLET PO SCH (21:34)
[2022-02-15] MEDS: levETIRAcetam 500 MG TABLET PO SCH (21:34)
[2022-02-16] MEDS: ALBUTEROL/IPRATROPIUM 3 ML NEB RESP TX SCH ×4 (00:15→19:16)
[2022-02-16] MEDS: LEVODOPA PO SCH ×4 (00:29→22:19)
[2022-02-16] MEDS: [UNRECOGNIZED DRUG - OTHER] PO SCH ×4 (00:29→22:19)
[2022-02-16] MEDS: CARBIDOPA PO SCH ×4 (00:29→22:19)
[2022-02-16] MEDS: cefTRIAXone 1,000 MG in SODIUM CHLORIDE 0.9% 100 ML IV SCH ×2 (00:29→22:19)
[2022-02-16] MEDS: HEPARIN 5,000 UNIT/1 ML VIAL SUBCUT SCH ×3 (05:49→22:21)
[2022-02-16 06:17] LABS: Basophils % 0.4 % (0.0-0.8); Eosinophils # 0.1 10*3/uL (0.0-0.87); Eosinophils % 1.2 % (0.00-10.9); Hematocrit 30.3 VOL% (35.7-47.0); Hemoglobin 9.7 GM/DL (12.0-16.0); Immature Granulocytes % 0.4 %; Immature Granulocytes Absolute 0.04 #; Lymphocytes # 2.3 10*3/uL (1.4-4.0); Lymphocytes % 22.8 % (21.3-54.2); Mean Platelet Volume 10.6 FL (9.6-12.0); Monocytes # 0.7 10*3/uL (0.11-0.8); Neutrophils % 68.2 % (38.7-73.9); Platelet Count 316 T/CUMM (130-400); Red Blood Count 3.06 MC/CUMM (3.8-5.5); Red Cell Distribution Width 13.4 % (9.3-17.3); White Blood Count 9.9 T/CUMM (4-12)
[2022-02-16 06:21] LABS: Alanine Aminotransferase 10 U/L (13-56); Albumin 2.5 G/DL (3.4-5.0); Alkaline Phosphatase 62 U/L (45-117); Aspartate Amino Transferase 12 U/L (0-37); Bilirubin,Total < 0.39 MG/DL (0.20-1.00); Blood Urea Nitrogen 38 MG/DL (7-18); Calcium 8.2 MG/DL (8.5-10.1); Carbon Dioxide 23 MMOL/L (21-32); Chloride 111 MMOL/L (98-107); Glucose 77 MG/DL (74-106); Osmolality,Calculated 288.3 MOS/KG (273-304); Potassium 3.8 MMOL/L (3.5-5.1); Sodium 141 MMOL/L (136-145); Total Protein 6.5 G/DL (6.4-8.2)
[2022-02-16] MEDS: INSULIN LISPRO 100 UNIT/ML SUBCUT SCH ×4 (08:43→22:21)
[2022-02-16] MEDS: MAGNESIUM CHLORIDE 64 MG TABLET PO SCH ×2 (08:44→22:20)
[2022-02-16] MEDS: TICAGRELOR 90 MG TABLET PO SCH ×2 (08:44→22:20)
[2022-02-16] MEDS: ROSUVASTATIN 20 MG TABLET PO SCH (08:44)
[2022-02-16] MEDS: levETIRAcetam 500 MG TABLET PO SCH ×2 (08:44→22:20)
[2022-02-16] MEDS: ASPIRIN EC 81 MG TABLET PO SCH (08:44)
[2022-02-16] MEDS: guaiFENesin/DM ER 600-30 MG TABLET PO SCH ×2 (08:45→22:20)
[2022-02-16] MEDS: FERROUS SULFATE 325 MG TABLET PO SCH (08:45)
[2022-02-16] MEDS: SODIUM CHLORIDE 0.9% 1,000 ML IV SCH ×2 (12:43→17:35)
[2022-02-16] MEDS: ESCITALOPRAM 10 MG TABLET PO SCH (22:20)
[2022-02-16] MEDS: AZITHROMYCIN INJ 500 MG in SODIUM CHLORIDE 0.9% 250 ML IV SCH (23:25)
[2022-02-17] MEDS: ALBUTEROL/IPRATROPIUM 3 ML NEB RESP TX SCH ×4 (00:52→19:05)
[2022-02-17] MEDS: HEPARIN 5,000 UNIT/1 ML VIAL SUBCUT SCH ×3 (04:30→21:47)
[2022-02-17] MEDS: INSULIN LISPRO 100 UNIT/ML SUBCUT SCH ×4 (09:11→23:03)
[2022-02-17] MEDS: guaiFENesin/DM ER 600-30 MG TABLET PO SCH ×2 (09:14→21:42)
[2022-02-17] MEDS: MAGNESIUM CHLORIDE 64 MG TABLET PO SCH ×2 (09:14→21:43)
[2022-02-17] MEDS: TICAGRELOR 90 MG TABLET PO SCH ×2 (09:14→21:42)
[2022-02-17] MEDS: FERROUS SULFATE 325 MG TABLET PO SCH (09:14)
[2022-02-17] MEDS: ASPIRIN EC 81 MG TABLET PO SCH (09:14)
[2022-02-17] MEDS: ROSUVASTATIN 20 MG TABLET PO SCH (09:14)
[2022-02-17] MEDS: levETIRAcetam 500 MG TABLET PO SCH ×2 (09:14→21:43)
[2022-02-17] MEDS: LEVODOPA PO SCH ×3 (09:15→21:46)
[2022-02-17] MEDS: CARBIDOPA PO SCH ×3 (09:15→21:46)
[2022-02-17] MEDS: [UNRECOGNIZED DRUG - OTHER] PO SCH ×3 (09:15→21:46)
[2022-02-17] MEDS: SODIUM CHLORIDE 0.9% 1,000 ML IV SCH (09:15)
[2022-02-17] MEDS: AZITHROMYCIN 250 MG TABLET PO SCH (15:13)
[2022-02-17] MEDS: cefTRIAXone 1,000 MG in SODIUM CHLORIDE 0.9% 100 ML IV SCH (21:37)
[2022-02-17] MEDS: ESCITALOPRAM 10 MG TABLET PO SCH (21:42)
[2022-02-18 04:59] LABS: Basophils % 0.4 % (0.0-0.8); Eosinophils # 0.3 10*3/uL (0.0-0.87); Eosinophils % 3.5 % (0.00-10.9); Hematocrit 33.1 VOL% (35.7-47.0); Hemoglobin 10.2 GM/DL (12.0-16.0); Immature Granulocytes % 0.6 %; Immature Granulocytes Absolute 0.06 #; Lymphocytes # 2.5 10*3/uL (1.4-4.0); Lymphocytes % 26.1 % (21.3-54.2); Mean Corpuscular HGB Conc 30.8 GM/DL (32-36); Mean Corpuscular Volume 101.5 FL (87-102); Mean Platelet Volume 10.6 FL (9.6-12.0); Monocytes # 0.6 10*3/uL (0.11-0.8); Monocytes % 6.5 % (1.7-12.7); Neutrophils % 62.9 % (38.7-73.9); Platelet Count 342 T/CUMM (130-400); Red Blood Count 3.26 MC/CUMM (3.8-5.5); Red Cell Distribution Width 13.2 % (9.3-17.3); White Blood Count 9.6 T/CUMM (4-12)
[2022-02-18 05:23] LABS: Calcium 8.5 MG/DL (8.5-10.1); Osmolality,Calculated 282.7 MOS/KG (273-304)
[2022-02-18] MEDS: HEPARIN 5,000 UNIT/1 ML VIAL SUBCUT SCH ×2 (05:56→12:31)
[2022-02-18] MEDS: ALBUTEROL/IPRATROPIUM 3 ML NEB RESP TX SCH ×3 (07:09→15:42)
[2022-02-18] MEDS ORDERED: MAGNESIUM SULF RIDER 2 GM/50 ML PREMIX IV ONE (09:00)
[2022-02-18] MEDS: SODIUM CHLORIDE 0.9% 1,000 ML IV SCH (09:45)
[2022-02-18] MEDS: LEVODOPA PO SCH ×2 (09:46→16:15)
[2022-02-18] MEDS: [UNRECOGNIZED DRUG - OTHER] PO SCH ×2 (09:46→16:15)
[2022-02-18] MEDS: CARBIDOPA PO SCH ×2 (09:46→16:15)
[2022-02-18] MEDS: INSULIN LISPRO 100 UNIT/ML SUBCUT SCH ×3 (09:47→16:16)
[2022-02-18] MEDS: MAGNESIUM CHLORIDE 64 MG TABLET PO SCH (09:47)
[2022-02-18] MEDS: guaiFENesin/DM ER 600-30 MG TABLET PO SCH (09:47)
[2022-02-18] MEDS: ASPIRIN EC 81 MG TABLET PO SCH (09:47)
[2022-02-18] MEDS: levETIRAcetam 500 MG TABLET PO SCH (09:47)
[2022-02-18] MEDS: AZITHROMYCIN 250 MG TABLET PO SCH (09:47)
[2022-02-18] MEDS: TICAGRELOR 90 MG TABLET PO SCH (09:47)
[2022-02-18] MEDS: ROSUVASTATIN 20 MG TABLET PO SCH (09:47)
[2022-02-18] MEDS: FERROUS SULFATE 325 MG TABLET PO SCH (09:48)
[2022-02-18 16:44] VITALS: BP 142/53
== END 2022-02-18 17:33 | disposition home health service (06) | DRG 871 ==
LOC: N.ED 14:50 → N.EDINP 17:28 → N.2E 19:59
PROVIDERS: ADMIT Hospitalist; ATTEND Hospitalist